=== PATIENT | female | born 1990 | race Caucasian/White ===

== ENCOUNTER 2022-01-14 20:40 | Emergency (ER) | payer OTHER, SELFPAY ==
[2022-01-14 20:44] VITALS: BP 150/81; PULSE 88; RESP 18; TEMP 36.9; O2SAT 97; BMI 42.9
--- NOTE | 2022-01-14 20:50 | ECG_ITS ---
Test Reason : CHEST PAIN Blood Pressure : / mmHG Vent. Rate : 090 BPM Atrial Rate : 090 BPM P-R Int : 144 ms QRS Dur : 086 ms QT Int : 334 ms P-R-T Axes : 067 022 030 degrees QTc Int : 408 ms Normal sinus rhythm Normal ECG No previous ECGs available Referred By: Generic ED Physician Electronically Signed By:LEX THOMAS MD
[2022-01-14 20:58] VITALS: BP 148/86; PULSE 85; PULSE 92; RESP 12; O2SAT 96
--- NOTE | 2022-01-14 21:03 | ED.CHESTPAIN ---
HPI - Chest Pain General Chief Complaint: Chest Pain Stated Complaint: right side facial pressure,,feels like heart racin Time Seen by Provider: 01/14/22 20:59 Source: patient Mode of arrival: ambulatory Limitations: no limitations History of Present Illness HPI narrative: 31-year-old female who presents emergency department for evaluation of chest pain and anxiety. The patient states that over the past 3 days she has been having intermittent chest pain. She states that the chest pain is triggered by her feeling anxious. She describes the pain is a squeezing sensation and she points to her left chest. She states the pain will last approximately 15 minutes and then resolved. The pain is not related to her activity level. She states that she will get sweats with the chest pain but denies lightheadedness, dizziness, neck, jaw, arm or back pain associated with her chest pain. She states that the pain is 6/10 at its worst. The patient states that she is currently pain-free at the time of my evaluation. Patient identifies the following stressors: The patient states that her job is very stressful, she works for [employer]. She states that she is trying to movement by house, she has not been able to sleep at night, she states that her neighbors have been rude to her. Onset (ago): day(s) (3) Timing of current episode: episodic (Three episodes per day, less than 15 minute) Onset: other (Three days prior triggered by anxiety and stress) Pain location: left chest Pain radiation: none Severity: moderate Quality: other (Squeezing) Relieving factors: nothing Exacerbating factors: stress and other (Anxiety) Associated symptoms: diaphoresis Treatment prior to arrival: none Risk Factors Coronary artery disease risk factors: smoking history Related Data Allergies Allergy/AdvReac Type Severity Reaction Status Date / Time loratadine [From Claritin-D] Allergy Hives Verified 01/14/22 20:44 pseudoephedrine Allergy Hives Verified 01/14/22 20:44 [From Claritin-D] Review of Systems Review of Systems: Yes all other systems are reviewed and are negative [facility] Past Medical History [facility] Narrative: Past medical history: None. Past surgical history: None. Social history: The patient states she has smoked 4 cigarettes per day for approximately 6 years, she stop smoking 3 days prior. She denies alcohol use. She states that she was smoking marijuana frequently stop smoking marijuana 3 days prior. Social History Social History Alcohol intake: current Alcohol intake frequency: holidays/special occasions only Smoked in Last 30 Days: Yes Use of substances other than those prescribed or required for medical reasons: Yes Substance Use Type: Marijuana Advance Directives: No Advance Directives Information Provided: No Patient : No Physical Exam Vital Signs: Vital Signs: Last Vital Signs Temp 98.5 F 01/14/22 20:44 Pulse 92 01/14/22 20:58 Resp 12 01/14/22 20:58 BP 148/86 H 01/14/22 20:58 Pulse Ox 96 01/14/22 20:58 O2 Del Method 01/14/22 20:58 BMI result Body Mass Index 42.9 Const: General: cooperative and no acute distress Orientation/consciousness: oriented to person and oriented to place Limitations: no limitations HEENT: Head: Yes normal to inspection, Yes normocephalic and Yes atraumatic Ears: external ears normal General nose exam: Normal external nose present Face and sinus: Yes normal facial exam Mouth: Normal oral and palatal mucosa present Throat: Yes posterior oropharynx normal Eyes: General: appearance normal, both eyes and all related structures Pupils: Equal, round and reactive pupils present Neck: Neck: Yes normal visual inspection, Yes no lymphadenopathy, Yes trachea midline and Yes supple Chest: Chest palpation & inspection: normal inspection of the chest and normal palpation of entire chest wall Resp: Effort & Inspection: normal respiratory effort and able to speak in complete sentences Auscultation: clear to auscultation bilaterally Cardio: Rate: regular rate Rhythm: regular rhythm Heart sounds: S1 normal heart sound present, S2 normal heart sound present and no murmurs GI: Inspection: Yes normal to inspection Palpation (GI): Soft to palpation, nontender and no guarding Auscultation: normal bowel sounds : General: Yes no CVA tenderness Back/Spine/Pelvis: Back: no CVA tenderness Skin: General skin exam: no rashes or lesions noted Neuro: General: oriented to person and oriented to place Cranial nerves: Yes CN's II-XII intact bilaterally and Yes Equal, round and reactive pupils present Cognition (Neuro): normal cognition Motor exam (neuro): 5/5 motor strength present throughout Extrem: General: Yes normal to inspection Psych: Appearance: grossly normal Speech and movement: Normal speech and movement present Affect: normal affect Attitude: cooperative Thought process: Normal thought process present Thought content: Normal thought content present Course Course Course Narrative: 31-year-old female with no significant past medical history presents emergency department for evaluation of 3 days of intermittent left-sided chest pain, triggered by feeling anxious. Patient states that she has been having approximately 3 episodes per day the last approximately 15 minutes the nurses to diaphoresis. Patient was pain-free at the time my evaluation. Her physical examination was unremarkable. I ordered a laboratory evaluation, chest x-ray EKG. 2116: EKG was unremarkable with no evidence for STEMI. 2239: Laboratory evaluation: WBC elevated 14,900. High sensitive troponin I below detectable limits. COVID-19, influenza and RSV negative. At this time I believe the patient's chest pain is symptoms are consistent with anxiety/panic attacks. Patient was given Ativan 0.5 mg orally. She was prescribed Ativan 0.5 mg 3 times a day as needed for anxiety. She was advised to follow-up with her PCP and with [facility] to get counseling and possible medications for anxiety. She was given printed and verbal instructions and discharged home. Medical Decision Making Medical Decision Making Differential Diagnoses: Differential diagnosis (Coronary disease, STEMI, NSTEMI, takotsubo syndrome, anxiety, chest wall pain) Consideration of admission/observation: Consideration of Admission/Observation (Yes) Independent interpretation of EKG, rhythm strip, radiology study: Independent interp EKG,rhythm strip, radiology study I performed an independent interpretation of the: EKG My interpretation is : 21:09: Normal sinus rhythm with a rate of 90, normal CA interval, QRS duration QTC interval, no ST segment elevation, no ST segment depression, no T-wave abnormalities, no PVCs, no PACs, this is a normal EKG. Discharge Plan Discharge Clinical Impression: Chest pain, Anxiety Patient Disposition: Home, Self-Care Instructions: Anxiety (ED) Additional Instructions: Your EKG was normal. Your blood work was normal. Your troponin (marker of heart damage) was below detectable limits which is reassuring. At this time, I believe that your chest pain is caused by stress and anxiety. Take Ativan (lorazepam) 0.5 mg pills, pill 3 times a day as needed for anxiety/panic attack. This medication will make you sleepy so after you take this medicine you should lie down and rest. This medication is called a benzodiazepine. Benzodiazepines can be addicting. If your concerned about addiction you can ask the pharmacist for less pills than prescribed or do not get this prescription filled. Follow-up with your doctor to discuss further treatment for anxiety, also you can follow-up with [facility] ([facility]) . Follow-up with your doctor in 2 days. Please return to the emergency department if your symptoms get worse or if you develop any symptoms that are concerning to you.
[2022-01-14 21:15] LABS: MANUAL DIFF FLAG NO
[2022-01-14 21:28] LABS: Basophils Absolute Auto 0.1 X10*3/uL (0.0-0.2); Basophils Percent Auto 0.7 % (0-2); Eosinophils Absolute Auto 0.1 X10*3/uL (0.0-0.4); Eosinophils Percent Auto 0.9 % (0-4); Hematocrit 40.4 % (37.0-47.0); Hemoglobin 14.1 g/dl (12.0-16.0); Imm Gran Abs Auto 0.07 X10*3/uL (0.00-0.03); Imm Gran Pct Auto 0.5 % (0.0-0.4); Lymphocytes Absolute Auto 4.4 X10*3/uL (1.2-4.9); Lymphocytes Percent Auto 29.7 % (20-40); Mean Corpuscular HGB Conc 34.9 g/dl (31.0-35.0); Mean Corpuscular Hemoglobin 29.9 pg (27.0-33.0); Mean Corpuscular Volume 85.6 fL (80.0-98.0); Mean Platelet Volume 9.9 fL (9.4-12.3); Monocytes Absolute Auto 0.9 X10*3/uL (0.1-1.2); Monocytes Percent Auto 5.7 % (2-11); Neutrophils Absolute Auto 9.4 x10*3/uL (2.0-8.3); Neutrophils Percent Auto 62.5 % (45-73); Platelet Count 404 X10*3/uL (160-400); Red Blood Count 4.72 X10*6/uL (4.20-5.50); Red Cell Distribution Width 12.6 % (11.0-16.0); White Blood Count 14.9 X10*3/uL (4.8-10.8)
[2022-01-14 21:42] LABS: Troponin-I High Sensitivity < 3.5 ng/L (<3.5-17.0)
[2022-01-14 21:53] LABS: Alanine Aminotransferase 39 U/L (0-31); Albumin Level 4.5 g/dL (3.5-5.0); Alkaline Phosphatase 71 U/L (39-117); Anion Gap 15 (12-20); Aspartate Amino Transferase 25 U/L (5-31); Blood Urea Nitrogen 10 mg/dL (9-16); Calcium 9.6 mg/dL (8.4-10.2); Carbon Dioxide 23 mmol/L (22-29); Chloride 106 mmol/L (96-108); Creatinine Clr Calc Pharmacy 136.5; Estimated Glomerular Filt Rate > 60; Glucose Random 109 mg/dL (60-115); Potassium 4.1 mmol/L (3.3-5.1); Sodium 140 mmol/L (135-145); Total Protein 7.9 g/dL (6.5-8.0)
[2022-01-14 21:59] LABS: Influenza A PCR NEGATIVE (Negative); Influenza B PCR NEGATIVE (Negative); Resp Syncy Virus RNA Qual PCR NEGATIVE (Negative); SARS COV2 PCR INHOUSE NEGATIVE (Negative)
[2022-01-14] MEDS: LORazepam 0.5 MG TABLET PO (22:54)
[2022-01-14 23:18] LABS: Bilirubin Total 0.6 mg/dL (0.0-1.0)
== END 2022-01-14 23:02 | disposition home or self-care (01) ==
PROVIDERS: Emergency Provider Emergency Medicine Emergency Medical Services
DX: R07.9 Chest pain, unspecified (principal); F41.9 Anxiety disorder, unspecified; Z20.822 Contact with and (suspected) exposure to COVID-19
CPT/HCPCS: 0241U; 36415; 80053; 83735; 84484; 85025; 93005; 99283; 99285

== ENCOUNTER 2024-10-10 10:20 | Outpatient (REF) | payer MEDICAID, SELFPAY ==
--- OUTSIDE RECORDS SUMMARY | 2024-10-10 09:30 | XMS_ITS | Encounter Summary ---
Demographics Address [address] [place] [address] Mobile Phone Home Phone Email Address Preferred Language en Marital Status Single Religion Affiliation Unknown Race Other Race Ethnic Group Unknown Author Organization [employer] Address [address] [place] [address] Care Team Providers Care [employer] Name Role Phone Rubina Rivas DO Primary Care Provider [phone] Encounter Details Date Type Department Care Team (Late st Contact Info) Description 10/10/2024 9:30 AM EDT Office Visit [facility] [address] [place], [place] [phone] Rubina Rivas DO [address] [place], [place] [phone] Routine history and physical examination of adult (Primary Dx); Anxiety; BMI 45.0-49.9, adult (CMS/HCC); Dietary counseling; Exercise counseling; Fatty liver; Chest pain, unspecified type; Dizziness Social History Tobacco Use Types Packs/Day Years Used Date Smoking Tobacco: Former Cigarettes Smokeless Tobacco: Former Tobacco Cessation:Counseling Given: No Alcohol Use Standard Drinks/Week Comments Never 0 (1 standard drink = 0.6 oz pur e alcohol) Alcohol Answer Date Recorded How often do you have a drink containing alcohol ? 1 10/10/2024 How many drinks containing a lcohol do you have on a typical day when you are drinking? 0 10/10/2024 How often do you have six or more drinks on one occasion? 1 10/10/2024 Depression Answer Date Recorded Patient Health Questionnaire-9 Score 10 10/10/2024 Patient Health Questionnaire-9 Score 10 10/10/2024 Last PHQ-9: Questionnaire Data Not on file 0 10/10/2024 Housing Stability Answer Date Recorded What is your housing situation today? I have rhys [place] 10/01/[address] you li ve. Do you have problems with any of the following? None of the above 10/01/2024 Food Insecurity Answer Date Recorded Within the past 12 months, y ou worried that your food would run out before you got money to buy more: Never True 10/01/2024 Within the past 12 months,th e food you bought just didn't last and you didn't have enough money to get more: Never True Transportation Answer Date Recorded In the past 12 months, has l ack of transportation kept you from medical appts, meetings, work or from getting things needed for daily living? No 10/01/2024 Utilities Answer Date Recorded In the past 12 months, has t he electric, gas, oil or water company threatened to shut off services in your home? Yes 10/01/2024 Depression Answer Date Recorded Patient Health Questionnaire-2 Score 2 10/10/2024 Internet Access Answer Date Recorded Internet Access Q1 Yes 10/01/2024 Internet Access Q2 Not on file 10/01/2024 Comments No Sex and Gender Information Value Date Recorded Sex Assigned at Female 03/07/2022 12:55 PM EST Legal Sex Female 12:55 PM EST Gender Identity Female 03/07/2022 12:55 PM EST Sexual Orientation Don't know 03/07/2022 12 :55 PM EST documented as of this encounter Last Filed Vital Signs Vital Sign Reading Time Taken Comments Blood Pressure 118/78 10/10/2024 9:30 AM EDT Pulse 92 10/10/2024 9:30 AM EDT Temperature 36.1 C (96.9 F) 10/10/2024 9:30 AM EDT Respiratory Rate 20 10/10/2024 9:30 AM EDT Oxygen Saturation 99% 10/10/2024 9:30 AM EDT Inhaled Oxygen Concentration - - Weight 119 kg (263 lb 4 oz) 10/10/2024 9:30 AM E DT Height 162.6 cm (5' 4 ) 10/10/2024 9:30 AM EDT Body Mass Index 45.19 10/10/2024 9:30 AM EDT documented in this encounter Functional Status * Over the past 2 weeks, how often have you been bothered by any of the following problems? Question Answer Date of Assessment Author Patient Health Questionnaire -2 Score 2 10/10/2024 10:25 AM EDT Karen Levy MA * Little interest or pleasure in doing things Answer Date of Assessment Author Several days 10/10/2024 10:25 AM Karen Duncan MA * Feeling down, depressed, or hopeless Answer Date of Assessment Author Several days 10/10/2024 10:25 AM Karen Duncan MA * Trouble falling or staying asleep, or sleeping too much Answer Date of Assessment Author Nearly every day 10/10/2024 10:25 AM Karen Duncan MA * Feeling tired or having little energy Answer Date of Assessment Author Several days 10/10/2024 10:25 AM Karen Duncan MA * Poor appetite or overeating Answer Date of Assessment Author More than half the days 10/10/2024 10:25 AM Karen Duncan MA * Feeling bad about yourself - or that you are a failure or have let yourself or your family down Answer Date of Assessment Author Several days 10/10/2024 10:25 AM Karen Duncan MA * Trouble concentrating on things, such as reading the newspaper or watching television Answer Date of Assessment Author Not at all 10/10/2024 10:25 AM Karen Duncan MA * Moving or speaking so slowly that other people could have noticed? Or the opposite - being so fidgety or restless that you have been moving around a lot more than usual. Answer Date of Assessment Author Several days 10/10/2024 10:25 AM Karen Duncan MA * Thoughts that you would be better off or hurting yourself in some way Answer Date of Assessment Author Not at all 10/10/2024 10:25 AM Karen Duncan MA * Patient Health Questionnaire-9 Score Answer Date of Assessment Author 10 10/10/2024 10:25 AM Karen Duncan MA * How difficult have these problems made it for you to do your work, take care of things at home, or get along with other people? Answer Date of Assessment Author Somewhat difficult 10/10/2024 10:25 AM EDT Mojic a, Karen, [place] * Over the last 2 weeks, how often have you been bothered by any of the following problems? Question Answer Date of Assessment Author Feeling nervous, anxious, or on edge 1 10/10/2024 10:25 AM EDT Karen Levy MA Not being able to stop or co ntrol worrying 1 10/10/2024 10:25 AM EDT Karen Levy MA Worrying too much about diff erent things 1 10/10/2024 10:25 AM EDT Karen Levy MA Trouble relaxing 1 10/10/2024 10:25 AM EDT Karen Levy MA Being so restless that it is hard to sit still 1 10/10/2024 10:25 AM EDT Karen Levy MA Becoming easily annoyed or irritable 0 10/10/2024 10:25 AM KAYLEENT Karen Levy MA documented as of this encounter Plan of Treatment Scheduled Orders Name Type Priority Associated Diagnoses Orde r Schedule T4, Free Lab Routine Routine history and physical examination of adult Anxiety BMI 45.0-49.9, adult ([facility]) Dietary counseling Exercise counseling Fatty liver Chest pain, unspecified type Dizziness Expected: 10/10/2024 (Approximate), Expires: 10/10/2025 Lipid Panel, Standard Lab Routine Routine history and physical examination of adult Anxiety BMI 45.0-49.9, adult ([facility]) Dietary counseling Exercise counseling Fatty liver Chest pain, unspecified type Dizziness Expected: 10/10/2024 (Approximate), Expires: 10/10/2025 TSH Lab Routine Routine history and physical examination of adult Anxiety BMI 45.0-49.9, adult ([facility]) Dietary counseling Exercise counseling Fatty liver Chest pain, unspecified type Dizziness Expected: 10/10/2024 (Approximate), Expires: 10/10/2025 Vitamin D, 25-Hydroxy, Total, Immunoassay Lab Routine Routine history and physical examination of adult Anxiety BMI 45.0-49.9, adult ([facility]) Dietary counseling Exercise counseling Fatty liver Chest pain, unspecified type Dizziness Expected: 10/10/2024 (Approximate), Expires: 10/10/2025 Hepatic Function Panel Lab Routine Routine history and physical examination of adult Anxiety BMI 45.0-49.9, adult ([facility]) Dietary counseling Exercise counseling Fatty liver Chest pain, unspecified type Dizziness Expected: 10/10/2024 (Approximate), Expires: 10/10/2025 Hemoglobin A1c Lab Routine Routine history and physical examination of adult Anxiety BMI 45.0-49.9, adult ([facility]) Dietary counseling Exercise counseling Fatty liver Chest pain, unspecified type Dizziness Expected: 10/10/2024 (Approximate), Expires: 10/10/2025 Basic Metabolic Panel Lab Routine Routine history and physical examination of adult Anxiety BMI 45.0-49.9, adult ([facility]) Dietary counseling Exercise counseling Fatty liver Chest pain, unspecified type Dizziness Expected: 10/10/2024 (Approximate), Expires: 10/10/2025 Hepatitis B surface antigen, EIA Lab Routine Routine history and physical examination of adult Anxiety BMI 45.0-49.9, adult ([facility]) Dietary counseling Exercise counseling Fatty liver Chest pain, unspecified type Dizziness Expected: 10/10/2024 (Approximate), Expires: 10/10/2025 Chlamydia/N. Gonorrhoeae RNA, TMA, Urogenitial Microbiology Routine Routine history and physical examination of adult Anxiety BMI 45.0-49.9, adult ([facility]) Dietary counseling Exercise counseling Fatty liver Chest pain, unspecified type Dizziness Ordered: 10/10/2024 HIV-1/2 Antigen and Antibodies, Fourth Generation, with Reflexes Lab Routine Routine history and physical examination of adult Anxiety BMI 45.0-49.9, adult ([facility]) Dietary counseling Exercise counseling Fatty liver Chest pain, unspecified type Dizziness Expected: 10/10/2024 (Approximate), Expires: 10/10/2025 Hepatitis C Antibody with Reflex to HCV, RNA, Quantitative, Real-Time PCR Lab Routine Routine history and physical examination of adult Anxiety BMI 45.0-49.9, adult ([facility]) Dietary counseling Exercise counseling Fatty liver Chest pain, unspecified type Dizziness Expected: 10/10/2024, Expires: 10/10/2025 RPR (Monitor) with Reflex to Titer Lab Routine Routine history and physical examination of adult Anxiety BMI 45.0-49.9, adult ([facility]) Dietary counseling Exercise counseling Fatty liver Chest pain, unspecified type Dizziness Expected: 10/10/2024, Expires: 10/10/2025 Hepatitis B Surface Antibody, Qualitative Lab Routine Routine history and physical examination of adult Anxiety BMI 45.0-49.9, adult ([facility]) Dietary counseling Exercise counseling Fatty liver Chest pain, unspecified type Dizziness Expected: 10/10/2024 (Approximate), Expires: 10/10/2025 Hepatitis A Antibody, Total Lab Routine Routine history and physical examination of adult Anxiety BMI 45.0-49.9, adult ([facility]) Dietary counseling Exercise counseling Fatty liver Chest pain, unspecified type Dizziness Expected: 10/10/2024 (Approximate), Expires: 10/10/2025 Hepatitis B Core Antibody, Total Lab Routine Routine history and physical examination of adult Anxiety BMI 45.0-49.9, adult ([facility]) Dietary counseling Exercise counseling Fatty liver Chest pain, unspecified type Dizziness Expected: 10/10/2024 (Approximate), Expires: 10/10/2025 Varicella zoster antibody, IgG Lab Routine Routine history and physical examination of adult Anxiety BMI 45.0-49.9, adult ([facility]) Dietary counseling Exercise counseling Fatty liver Chest pain, unspecified type Dizziness Expected: 10/10/2024 (Approximate), Expires: 10/10/2025 Measles, Mumps, and Rubella (MMR) Antibodies (IgG) Panel, Immune Status Lab Routine Routine history and physical examination of adult Anxiety BMI 45.0-49.9, adult ([facility]) Dietary counseling Exercise counseling Fatty liver Chest pain, unspecified type Dizziness Expected: 10/10/2024 (Approximate), Expires: 10/10/2025 T-SPOT .TB Lab Routine Routine history and physical examination of adult Anxiety BMI 45.0-49.9, adult ([facility]) Dietary counseling Exercise counseling Fatty liver Chest pain, unspecified type Dizziness Expected: 10/10/2024 (Approximate), Expires: 10/10/2025 Alpha-Fetoprotein, Tumor Marker Lab Routine Routine history and physical examination of adult Anxiety BMI 45.0-49.9, adult ([facility]) Dietary counseling Exercise counseling Fatty liver Chest pain, unspecified type Dizziness Expected: 10/10/2024 (Approximate), Expires: 10/10/2025 CBC auto differential Lab Routine Routine history and physical examination of adult Anxiety BMI 45.0-49.9, adult ([facility]) Dietary counseling Exercise counseling Fatty liver Chest pain, unspecified type Dizziness Expected: 10/10/2024 (Approximate), Expires: 10/10/2025 documented as of this encounter Visit Diagnoses Diagnosis Routine history and physical examination of adult- Primary Anxiety Anxiety state, unspecified BMI 45.0-49.9, adult (CMS/HCC) Dietary counseling Dietary surveillance and counseling Exercise counseling Fatty liver Other chronic nonalcoholic liver disease Chest pain, unspecified type Dizziness Dizziness and giddiness documented in this encounter Additional Health Concerns Assessment Noted Time PHQ-9 Depression Total Score: 10 025 10:25 AM EDT documented as of this encounter Care Teams [employer] Relationship Specialty Start Date End Date Rubina Rivas DO [address] [place] [id number] PCP - General Family Medicine 10/10/24 documented as of this encounter
[2024-10-10 11:19] LABS: MANUAL DIFF FLAG NO
--- OUTSIDE RECORDS SUMMARY | 2024-10-10 11:24 | XMS_ITS | Clinical Summary ---
Author Organization [facility] Address [address] [place] [address] Care Team Providers Care Opera Singer Name Role Phone Travon Reyes MD Primary Care Provider [phone] Source Comments PLEASE NOTE, if this patient is a minor, it may be UNLAWFUL to discuss sensitive information that is contained in these records (such as FAMILY PLANNING, MENTAL HEALTH or SUBSTANCE ABUSE) with the minor patient's parent or other person without the patient's specific authorization.[facility] Allergies No known active allergies Medications cetirizine (ZYRTEC) 10 mg tabletIndicatio ns:Urticaria Take 1 Tablet by mouth nightly at bedtime 30 Tablet 1 4 Active diclofenac sodium (VOLTAREN) 1 % gelIndications: Acute pain of left shoulder Apply topically 2 (two) times daily 100 g 3 5 Active ketoconazole (NIZORAL) 2 % creamIndication s:Tinea pedis of right foot Apply topically 2 (two) times daily. 60 g 5 Active fluticasone (FLONASE) 50 mcg/actuation nasal sprayIndication s:Nasal sinus congestion Place 2 Sprays in both nostrils once daily for 14 days. 16 g 2 5 Active Active Problems Problem Noted Date Diagnosed Date IUD (intrauterine device) in place 03/14/2024 Overview (03/14/2024): Paraguard placed 02/2020 at [facility] Food insecurity 03/14/2024 Financial difficulties 03/14/2024 Housing problems 03/14/2024 Mixed hyperlipidemia 06/01/2023 Class 3 severe obesity due t o excess calories with serious comorbidity and body mass index (BMI) of 45.0 to 49.9 in adult (CMS & HHS-HCC) 08/06/2022 Carpal tunnel syndrome, bilateral 09/20/2020 Resolved Problems Problem Noted Date Diagnosed Date Resolved Date Ex-smoker for less than 1 year 09/20/2020 05/02/2022 Encounter for insertion of ParaGard IUD 08/23/2020 05/02/2022 Overview (08/23/2020): Feb 2020 at [place] Encounters Date Type Department Care Team Description 08/05/2024 1:20 PM EDT Office Visit [address] [phone] Travon Reyes MD 07/17/2024 3:40 PM EDT Office Visit [address] [id number] Cookie, NAYELI Black from Last 3 Months Immunizations Immunization Administration Dates Next Due Flu, Preservative Free 12/10/2020 Family History Medical History Relation Name Comments Breast cancer Maternal Aunt Congestive heart failure Maternal Grandmother Diabetes Maternal Grandmother HIV/AIDS Mother Relation Name Status Comments Maternal Aunt Alive Maternal Grandmother Mother Social History Tobacco Use Types Packs/Day Years Used Date Smoking Tobacco: Former Cigarettes Q uit: 07/24/2020 Smokeless Tobacco: Never Tobacco Cessation:Counseling Given: Not Answered Alcohol Use Standard Drinks/Week Comments Never 0 (1 standard drink = 0.6 oz pur e alcohol) Social Connections Answer Date Recorded How often do you feel lonely or isolated from th ose around you? 1 03/14/2024 Financial Resource Strain Answer Date R ecorded Hard to pay for: Utilities 2 03/14 Stress Answer Date Recorded Do you feel these kinds of stress these days? 1 03/14/2024 Physical Activity Answer Date Recorded Physical Activity 0 08/23/2020 Food Insecurity Answer Date Recorded Within the past 12 months, t he food you bought just didn't last and you didn't have enough money to get more. 2 03/14/19 Transportation Needs Answer Date Record ed Hard to pay for: Transportation 1 03/14/2024 Housing Stability Answer Date Recorded Hard to pay for: Rent/Mortgage payment 2 03/14/2024 Safety and Environment Answer Date Jed rded How often does anyone, inclu ding family and friends, physically hurt you? 1 03/14/2024 Utilities Answer Date Recorded Hard to pay for: Utilities 2 03/14 Employment Answer Date Recorded Stress 0 04/25/2021 Comments No Sex and Gender Information Value Date Recorded Sex Assigned at Female 09/20/2020 6:15 AM PDT Legal Sex Female 12:21 PM PDT Gender Identity Female 09/20/2020 6:15 AM PDT Sexual Orientation Straight 09/20/2020 6: 15 AM PDT Last Filed Vital Signs Vital Sign Reading Time Taken Comments Blood Pressure 110/62 08/05/2024 1:25 PM EDT Pulse 73 08/05/2024 1:25 PM EDT Temperature 36.2 C (97.1 F) 08/05/2024 1:25 PM EDT Respiratory Rate 16 08/05/2024 1:25 PM EDT Oxygen Saturation 97% 08/05/2024 1:25 PM EDT Inhaled Oxygen Concentration - - Weight 117.8 kg (259 lb 9.6 oz) 08/05/2024 1:25 PM EDT Height 163.7 cm (5' 4.45 ) 03/14/2024 1:12 PM ES T Body Mass Index 43.94 03/14/2024 1:12 PM EST Plan of Treatment Health Maintenance Due Date Last Done Comments HPV Screening 1989 Breast Cancer Screening (Mammogram) 02/07/2023 02/07/2022 Depression Monitoring 06/11/2024 03/14/2024 , 05/02/2022, 08/23/2020 [id number] ( season) 10/06/202412/31/2 021, 12/10/2020 Annual Wellness (Adult): Indicated (All Coverage) 03/14/2025 03/14/2024, 08/03/2022 Anxiety Screening 03/14/2025 03/14/2024 Relationship Safety Screening/Counseling 03/14/2025 03/14/2024, 05/02/2022, 08/23/2020 Pap Smear 04/06/2025 04/06/2022 Hypertension Screening (#1) 08/05/2025 Tobacco Screening 08/05/2025 08/05/2024, , 08/23/2020 Diabetes Screening 03/14/2027 03/14/2024, 0 03/14/2024, 06/01/2023, Additional history exists Lipid Screening 03/14/2027 03/14/2024, 0407/2023, 05/05/2022, Additional history exists Cervical Cancer Screening 04/07/2027 Pap + HPV 04/07/2027 04/06/2022 Imm-Influenza Discontinued 12/10/2020 HIV Screening Completed 04/06/2022 Hepatitis C Screening Completed 04/06/2022 Alcohol and Drug Screen Completed 03/14/19, 08/03/2022, 05/02/2022, Additional history exists Cervical Ablation/Cold-Knife Conization Discontinued Cervical Cryotherapy Discontinued Colposcopy Discontinued Endometrial Biopsy Discontinued Excision/Leep Discontinued HPV Genotyping Discontinued Imm-DTaP/Tdap/Td Discontinued Imm-Hepatitis B Discontinued Vaginal Pap Discontinued Vulvoscopy Discontinued Procedures Procedure Name Priority Date/Time Associated Diagnosis Comments COMPREHENSIVE METABOLIC PANEL Routine 03/14/2024 1:48 PM EST Routine general medical examination at a health care facility LIPID PANEL Routine 03/14/2024 1:48 PM EST Routine general medical examination at a health care facility HIV 1/2 AG & AB W/RFLX (4TH GEN) Routine 04/06/2022 11:30 AM EST Screening for STDs (sexually transmitted diseases) HEPATITIS C AB W/RFLX HCV RNA, QT, RT PCR Routine 04/06/2022 11:30 AM EST Screening for STDs (sexually transmitted diseases) THINPREP PAP & HPV MRNA E6/E7 RFLX HPV 16,18/[address]/NG Routine 04/06/2022 11:12 AM EST Encounter for Papanicolaou smear of vagina as part of routine gynecological examination Encounter for screening for human papillomavirus (HPV) HISTORIC MAMMOGRAM 02/07/2022 3: 00 AM EST from Last 3 Months or Most Recently Relevant to Health Maintenance Results * (ABNORMAL) LIPID PANEL (03/14/2024 1:48 PM EST) Pathologist [facility] CHOLESTEROL, TOTAL 199 <200 mg/dL [facility] HDL CHOLESTEROL 45(L) > OR = 50 mg/dL [facility] TRIGLYCERIDES 154(H) <150 mg/dL [facility] LDL-CHOLESTEROL 127(H) 99 mg/dL (calc) [facility] Comment: Reference range: <100 Desirable range <100 mg/dL for primary prevention; <70 mg/dL for patients with CHD or diabetic patients with > or = 2 CHD risk factors. LDL-C is now calculated using the Melody calculation, which is a validated novel method providing better accuracy than the Friedewald equation in the estimation of LDL-C. Augustine SS et al. ADALGISA. 2013;310(76): 9334-7966 (http://education.Transave/faq/NWT662) CHOL/HDLC RATIO 4.4 <5.0 (calc) [facility] NON-HDL CHOLESTEROL 154(H) <130 mg/dL (calc) [facility] Comment: For patients with diabetes plus 1 major ASCVD risk factor, treating to a non-HDL-C goal of <100 mg/dL (LDL-C of <70 mg/dL) is considered a therapeutic option. Blood Blood / Unknown 03/14/2024 1 :48 PM EST 03/14/2024 1:49 PM EST Narrative [facility] - 03/15/2024 8:03 AM EST FASTING:YES Travon Reyes MD LAB - BLOOD DRAW Final Result [facility] [address] [address], [facility] [address] [address] * (ABNORMAL) COMPREHENSIVE METABOLIC PANEL (03/14/2024 1:48 PM EST) [facility] GLUCOSE 95 65 - 99 mg/dL [facility] Comment: Fasting reference interval [facility] NITROGEN (BUN) 15 7 - 25 mg/dL [facility] CREATININE (blood) 0.84 0.50 - 0.97 mg/dL [facility] EGFR 93 > OR = 60 mL/min/1. 73m2 [facility] BUN/CREATININE RATIO SEE NOTE: 6 [facility] Comment: Not Reported: BUN and Creatinine are within reference range. SODIUM 140 135 - 146 mmol/L [facility] POTASSIUM 5.2 3.5 - 5.3 mmol/L [facility] CHLORIDE 105 98 - 110 mmol/L [facility] CARBON DIOXIDE 25 20 - 32 mmol/L [facility] CALCIUM 10.1 8.6 - 10.2 mg/dL [facility] PROTEIN, TOTAL 7.7 6.1 - 8.1 g/dL [facility] ALBUMIN 4.7 3.6 - 5.1 g/dL [facility] GLOBULIN 3.0 1.9 - 3.7 g/dL (calc) [facility] ALBUMIN/GLOBULI N RATIO 1.6 1.0 - 2.5 (calc) [facility] BILIRUBIN, TOTAL 0.5 0.2 - 1.2 mg/dL [facility] ALKALINE PHOSPHATASE 69 31 - 125 U/L [facility] AST 21 10 - 30 U/L [facility] ALT 41(H) 6 - 29 U/L [facility] Blood Blood / Unknown 03/14/2024 1 :48 PM EST 03/14/2024 1:49 PM EST Narrative [facility] - 03/15/2024 8:03 AM EST FASTING:YES Travon Reyes MD LAB - BLOOD DRAW Edited Result - Final [facility] [address] [address], [facility] [address] [place] [address] * HEPATITIS C AB W/RFLX HCV RNA, QT, RT PCR (04/06/2022 11:30 AM EST) HEPATITIS C ANTIBODY NON-REACT CHRISS NON-REACT CHRISS [facility] SIGNAL TO CUT-OFF 0.04 <1.00 [facility] Comment: HCV antibody was non-reactive. There is no laboratory evidence of HCV infection. In most cases, no further action is required. However, if recent HCV exposure is suspected, a test for HCV RNA (test code 15338) is suggested. For additional information please refer to http://University Beyond.Leonar3Do/faq/HCB00n7 (This link is being provided for informational/ educational purposes only.) Blood Blood / Unknown 04/06/2022 1 1:30 AM EST 04/06/2022 11:31 AM EST us Travon Reyes MD LAB - BLOOD DRAW Edited Result - Final Performing Organization Address [facility] Co de Phone Number [facility] [address] [address], [facility] [address] ([address] [address] * HIV 1/2 AG & AB W/RFLX (4TH GEN) (04/06/2022 11:30 AM EST) HIV AG/AB, 4TH GEN NON-REAC TIVE NON-REAC TIVE [facility] Comment: HIV-1 antigen and HIV-1/HIV-2 antibodies were not detected. There is no laboratory evidence of HIV infection. PLEASE NOTE: This information has been disclosed to you from records whose confidentiality may be protected by state law. If your state requires such protection, then the state law prohibits you from making any further disclosure of the information without the specific written consent of the person to whom it pertains, or as otherwise permitted by law. A general authorization for the release of medical or other information is NOT sufficient for this purpose. For additional information please refer to http://University Beyond.Leonar3Do/faq/UYU889 (This link is being provided for informational/ educational purposes only.) The performance of this assay has not been clinically validated in patients less than 2 years old. Blood Blood / Unknown 04/06/2022 1 1:30 AM EST 04/06/2022 11:31 AM EST us Travon Reyes MD LAB - BLOOD DRAW Final Result Performing Organization Address [facility] Co de Phone Number [facility] [address] [address], [place] [facility] [address] ([address]) [place] [address] * THINPREP PAP & HPV MRNA E6/E7 RFLX HPV 16,18/[address]/NG (04/06/2022 11:12 AM EST) CHLAMYDIA TRACHOMATIS RNA, TMA NOT DETECTED NOT DETECTED [facility] NEISSERIA GONORRHOEAE RNA, TMA NOT DETECTED NOT DETECTED [facility] COMMENT [facility] CLINICAL INFORMATION See Note [facility] Comment:Routine exam LMP See Note [facility] Comment:03/12/2022 PREV. PAP See Note [facility] Comment:NONE GIVEN PREV. BX See Note [facility] Comment:NONE GIVEN SOURCE See Note [facility] Comment:Cervix STATEMENT OF ADEQUACY See Note [facility] Comment: Satisfactory for evaluation. Endocervical/transformation zone component present. INTERPRETATION/RESU LT See Note [facility] Comment:Negative for intraep ithelial lesion or malignancy. 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 HPV MRNA E6/E7 Not Detected Not Detected [facility] Comment: Methodology: Bleacher Sulfite Pulp-Mediated Amplification This assay detects E6/E7 viral messenger RNA (mRNA) from 14 high-risk HPV types (16,18,31,33,35,39,45,51,52,56,58,59,66,68). Cervical sources are required for HPV testing. If a vaginal source from a patient who has had a total hysterectomy with removal of cervix was submitted, please contact the testing laboratory for alternative testing options. For additional information, please refer to http://education.Leonar3Do/faq/TLC052r1 (This link if provided for information/ educational purposes only.) CYTOLOGY Cervix uteri structure / Unknown 04/06/2022 11:12 AM EST 04/07/2022 11:37 AM EST Narrative [facility] - 04/11/2022 10:51 AM EST EXPLANATORY NOTE: The Pap is a screening test for cervical cancer. It is not a diagnostic test and is subject to false negative and false positive results. It is most reliable when a satisfactory sample, regularly obtained, is submitted with relevant clinical findings and history, and when the Pap result is evaluated along with historic and current clinical information. The analytical performance characteristics of this assay, when used to test SurePath(TM) specimens have been determined by [employer]. The modifications have not been cleared or approved by the FDA. This assay has been validated pursuant to the CLIA regulations and is used for clinical purposes. For additional information, please refer to https://education.Leonar3Do/faq/FWE428 (This link is being provided for information/ educational purposes only.) Travon Reyes MD LAB - PATHOLOGY AND CYTOLOGY AMB ULATORY Final Result [facility] [address] [address], [facility] [address] ([address]) [place] [address] * HISTORIC MAMMOGRAM (02/07/2022 3:00 AM EST) 02/07/2022 3:00 AM EST Amairani Griffiths FINISHED YARN EXAMINER-C IMG MAMMO Edited R esult - Final from Last 3 Months or Most Recently Relevant to Health Maintenance Insurance [place] MEDICAID DENT[place] [address] ACO Health Administration [facility] [place] Medicaid Address: [facility] [id number] [place] [address] Care Teams Opera Singer Relationship Specialty Start Date End Date Travon Reyes MD [address] [place] [address] PCP - General Family Medicine, Physician 02/02/23
--- OUTSIDE RECORDS SUMMARY | 2024-10-10 11:24 | XMS_ITS | Encounter Summary ---
Demographics Address [address] [place] [address] Mobile Phone Home Phone Email Address m Preferred Language en Marital Status Single Yazidism Affiliation Unknown Race Other Race Ethnic Group Unknown Author Organization [employer] Address [address] [place] [address] Care Team Providers Care Thaw Shed Heater Tender Name Role Phone ChingRubina brown Primary Care Provider Encounter Details Date Type Department Care Team (Latest Contact Info) Description 10/10/2024 Travel Social History Tobacco Use Types Packs/Day Years Used Date Smoking Tobacco: Former Cigarettes Smokeless Tobacco: Former Alcohol Use Standard Drinks/Week Comments Never 0 [...] PM EST documented as of this encounter Functional Status * Over the past 2 weeks, how often have you been bothered by any of the following problems? Question Answer Date of Assessment Author Patient Health Questionnaire -2 Score 2 10/10/2024 10:25 AM Karen Duncan MA * Little interest or pleasure in [...] Assessment Author Several days 10/10/2024 10:25 AM EDT Karen Levy MA * Thoughts that you would be better off or hurting yourself in some way Answer Date of Assessment Author Not at all 10/10/2024 10:25 AM EDT Karen Levy MA * Patient Health Questionnaire-9 Score Answer Date of Assessment Author 10 10/10/2024 10:25 AM EDT Karen Levy MA * How difficult have these problems made it for you to do your work, take care of things at home, or get along with other people? Answer Date of Assessment Author Somewhat difficult 10/10/2024 10:25 AM EDT Karen Johns MA * Over the last 2 weeks, [...] annoyed or irritable 0 10/10/2024 10:25 AM EDT Karen Levy MA documented as of this encounter Plan of Treatment Not on file documented as of this encounter Visit Diagnoses Not on filedocumented in this encounter Additional Health Concerns Assessment Noted Time PHQ-9 Depression Total Score: 10 10/10/2 025 10:25 AM EDT documented as of this encounter Care Teams Thaw Shed Heater Tender Relationship Specialty Start Date End Date Rubina Rivas DO [facility] [place] [address] PCP - General Family Medicine 10/10/24 documented as of this encounter
--- OUTSIDE RECORDS SUMMARY | 2024-10-10 11:24 | XMS_ITS | Encounter Summary ---
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 Name Role Phone Unavailable Primary Care Provider Unavailabl e Encounter Details Date Type Department Care Team (Latest Contact Info) Description 10/09/2024 Travel Social History Tobacco Use Types Packs/Day Years Used Date Smoking Tobacco: Never Assessed Alcohol Answer Date Recorded How often do [...] Access Q2 Not on file 10/01/2024 Comments Unknown Sex and Gender Information Value Date Recorded Sex Assigned at Female 03/07/2022 12:55 PM EST Legal Sex Female 12:55 PM EST Gender Identity Female 03/07/2022 12:55 PM EST Sexual Orientation Don't know 03/07/2022 12 :55 PM EST documented as of this encounter Plan of Treatment Not on file documented as of this encounter Visit Diagnoses Not on filedocumented in this encounter
--- OUTSIDE RECORDS SUMMARY | 2024-10-10 11:24 | XMS_ITS | Clinical Summary ---
Author Organization [employer] [facility] Address [address] [place] [address] Care Team Providers Care Guest Room Attendant Name Role Phone Rubina Rivas DO Primary Care Provider [phone] Allergies No known active allergies Active Problems Problem Noted Date Diagnosed Date Anxiety 10/10/2024 BMI 45.0-49.9, adult 10/10/2024 Encounters Date Type Department Care Team Description 10/10/2024 9:30 AM EDT Office Visit [facility] [address] [place] [id number] Rubina Rivas DO Routine history and physical examination of adult (Primary Dx); Anxiety; BMI 45.0-49.9, adult (CMS/[facility]); Dietary counseling; Exercise counseling; Fatty liver; Chest pain, unspecified type; Dizziness 10/10/2024 Travel 10/09/2024 Travel 10/01/2024 Patient Outreach [facility] [address] [place] [phone] Rubina Rivas DO Pre-visit Planning (SDOH screening negative and tobacco screening negative) 10/01/2024 Telephone [facility] [address] [place] [phone] Rubina Rivas DO Chart Prep 08/26/2024 Population Health Risk Score [facility] Department [address] [phone] Provider, Population Health Generic from Last 3 Months Immunizations Immunization Administration Dates Next Due Influenza injectable quadrivalent preservative f ree 12/10/2020 Family History Medical History Relation Name Comments Hypertension Father COPD Maternal Grandmother Diabetes Maternal Grandmother Hypertension Maternal Grandmother Depression Mother HIV Mother Hepatitis Mother Breast cancer Mother's Sister Ovarian cancer Mother's Sister Stroke Paternal Grandmother Relation Name Status Comments Father Maternal Grandmother Mother Mother's Sister Paternal Grandmother Social History Tobacco Use Types Packs/Day Years [...] your housing situation today? I have rhys hansa 10/01/[address] you li [...] Don't know 03/07/2022 12 :55 PM EST Last Filed Vital Signs Vital Sign Reading [...] Mass Index 45.19 10/10/2024 9:30 AM EDT Plan of Treatment Health Maintenance Due Date Last Done Comments Lipid Panel 1989 Family Planning (PISQ) 2004 HPV Vaccines (1 - 3-dose series) 2004 Hepatitis C Screening 05/07/2007 DTaP/Tdap/Td Vaccines (1 - Tdap) 2008 Hepatitis A Vaccines (1 of 2 - Risk 2-dose series) 2008 Hepatitis B Vaccines (1 of 3 - 19+ 3-dose series) 2008 Pap Smear 2010 Cervical Cancer Screening 05/07/2019 HPV/Cotest 05/07/2019 COVID-19 Vaccine (3 - 2024-2 6 season) 2024 12/31/2020, 12/10/2020 Influenza Vaccine (#1) 2024 12/10/2020 Depression Monitoring 04/09/2025 10/10/2024 , 10/10/2024 SDOH Screening 10/01/2025 10/01/2024 Alcohol/Substance Use Screening 10/10/2025 10/10/2024 Disability Screening 10/10/2025 10/10/2024 Tobacco Screening 10/10/2025 10/10/2024 Zoster Vaccines (1 of 2) 05/07/2039 RSV Patients and Patients Aged 60 years or older (1 - 1-dose 75+ series) 2064 HIV Screening Completed 04/06/2022, 04/06/2022 HIB Vaccines Aged Out No longer eligi ble based on patient's age to complete this topic IPV Vaccines Aged Out No longer eligi ble based on patient's age to complete this topic Meningococcal B Vaccine Aged Out No l onger eligible based on patient's age to complete this topic Meningococcal Vaccine Aged Out No haylie lionel eligible based on patient's age to complete this topic Pneumococcal Vaccine: Pediatrics (0 to 5 Years) and At-Risk Patients (6 to 49) Years Aged Out No longer eligible b ased on patient's age to complete this topic RSV under 20 months Aged Out No longe r eligible based on patient's age to complete this topic Rotavirus Vaccines Aged Out No longer eligible based on patient's age to complete this topic [facility] [employer] * Guarantor: Caterina Thomas Account Type Relation to Patient Date of Phone Billing Address Personal/Family Self [address] [place] [address] Care Teams Guest Room Attendant Relationship Specialty Start Date End Date Rubina Rivas DO [address] [place] [id number] PCP - General Family Medicine 10/10/24
--- OUTSIDE RECORDS SUMMARY | 2024-10-10 11:24 | XMS_ITS | Clinical Summary ---
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 Name Role Phone Laxmi Helms MD Primary Care Provider Unava ilable Surgical History Surgery Date Site/Laterality Comments OTHER SURGICAL HISTORY PROCEDURE: DENIES PREVIOUS SURGERY BREAST BIOPSY 2019 Left PROCEDURE: BX BREAST; PERC NEEDLE CORE W/IMAG GUID; COMMENT: Fibroadenoma, benign Medical History Medical History Date Comments Chlamydia contact, treated 03/23/2016 DX:Ch lamydia contact, treated; COMMENT: 03/2016, 08/2016 Breast cyst, left 10/2019 DX:Breast cyst , left; COMMENT: biopsy benign Family History Medical History Relation Name Comments No Known Problems Father Diabetes Maternal Grandmother Hypertension Maternal Grandmother No Known Problems Mother Breast cancer Mother's side Aunt aunt (2019, d rosalba well, required radiaton only) Relation Name Status Comments Father Alive Maternal Grandmother Mother Alive Mother's side Aunt Alive Social History Tobacco Use Types Packs/Day Years Used Date Smoking Tobacco: Some Days Smokeless Tobacco: Never Alcohol Use Standard Drinks/Week Comments Yes 0 (1 standard drink = 0.6 oz pur e alcohol) Comments Unknown Sex and Gender Information Value Date Recorded Sex Assigned at Not on file Legal Sex Female 8:29 AM EST Gender Identity Not on file Sexual Orientation Not on file Obstetrics History Plan of Treatment Health Maintenance Due Date Last Done Comments COVID-19 Vaccine (#1) 1994 DTaP,Tdap,and Td Vaccines (1 - Tdap) 2008 Hepatitis B Vaccines (1 of 3 - 19+ 3-dose series) 2008 Pneumococcal Vaccine: Pediat rics (0 to 5 Years) and At-Risk Patients (6 to 49 Years) (1 of 2 - PCV) 2008 Cervical Cancer Screening: P ap Smear 07/12/2021 07/12/2018 HIV Screening 01/08/2022 Hepatitis C Screening 01/08/2022 Social Influencers of Health Screening 01/08/2022 Depression Screening 02/06/2024 Influenza Vaccine (#1) 2024 HIB Vaccines Aged Out No longer eligi ble based on patient's age to complete this topic HPV Vaccines Aged Out No longer eligi ble based on patient's age to complete this topic Hepatitis A Vaccines Aged Out No long er eligible based on patient's age to complete this topic IPV Vaccines Aged Out No longer eligi ble based on patient's age to complete this topic MMR Vaccines Aged Out No longer eligi ble based on patient's age to complete this topic Meningococcal ACWY Vaccine Aged Out N o longer eligible based on patient's age to complete this topic Meningococcal B Vaccine Aged Out No l onger eligible based on patient's age to complete this topic RSV Immunization Patients Un darnell 20 months Aged Out No longer eligible b ased on patient's age to complete this topic Varicella Vaccines Aged Out No longer eligible based on patient's age to complete this topic Procedures Procedure Name Priority Date/Time Associated Diagnosis Comments PAP SMEAR Routine 07/12/2018 from Last 3 Months or Most Recently Relevant to Health Maintenance Results * Pap smear (07/12/2018) 07/12/2018 Narrative HISTORICAL TESTING LAB RESULTING AGENCY - 07/17/2018 4:10 PM EDT [id number] THINPREP PAP, IMAGED: NEGATIVE FOR SQUAMOUS INTRAEPITHELIAL LESION AND MALIGNANCY . CLUE CELLS ARE PRESENT. MARCELL HEREDIA(ASCP) (CASE ELECTRONICALLY SIGNED 07 17 2018) ADEQUACY: SATISFACTORY ENDOCERVICAL/TRANSFORMATION ZONE COMPONENT ABSENT. SOURCE: THINPREP PAP HPV IF ASCUS, CERVICAL, IMAGED CLINICAL INFORMATION: HPV IF DIAGNOSIS OF ASCUS. Z12.4, Z01.419, HORMONES, PAP HX 2017 NEG CYTOLOGY WITH + ACTINOMYCES, REACTIVE CELLULAR CHANGES, LMP 07/02/2018 [facility] ORDERABLES Final Result HISTORICAL TESTING LAB RESULTING AGENCY from Last 3 Months or Most Recently Relevant to Health Maintenance Care Teams Dimension Mill Worker Relationship Specialty Start Date End Date Laxmi Helms MD PCP - General Pediatrics 03/17/16
[2024-10-10 11:25] LABS: White Blood Count 7.9 X10*3/uL (4.8-10.8)
[2024-10-10 11:26] LABS: Hematocrit 40.0 % (37.0-47.0); Hemoglobin 14.1 g/dl (12.0-16.0); Imm Gran Abs Auto 0.03 X10*3/uL (0.00-0.03); Imm Gran Pct Auto 0.4 % (0.0-0.4); Lymphocytes Absolute Auto 2.2 X10*3/uL (1.2-4.9); Mean Corpuscular HGB Conc 35.3 g/dl (31.0-35.0); Mean Corpuscular Hemoglobin 30.5 pg (27.0-33.0); Mean Corpuscular Volume 86.4 fL (80.0-98.0); NRBC Abs Auto 0.000 X10*3/uL (0.0-0.012); NRBC Pct Auto 0.0 /100WBC (0.0-0.2); Platelet Count 366 X10*3/uL (160-400); Red Blood Count 4.63 X10*6/uL (4.20-5.50)
[2024-10-10 11:35] LABS: Hemoglobin A1C 117.9546 umol/L; Total Hemoglobin (HGBA1C) 3607.8749 umol/L
[2024-10-10 11:55] LABS: Alanine Aminotransferase 32 U/L (0-31); Albumin Level 4.6 g/dL (3.5-5.0); Alkaline Phosphatase 91 U/L (39-117); Anion Gap 10 (12-20); Aspartate Amino Transferase 31 U/L (5-31); Blood Urea Nitrogen 12 mg/dL (9-16); Calcium 9.0 mg/dL (8.4-10.2); Carbon Dioxide 23 mmol/L (22-29); Chloride 110 mmol/L (96-108); Cholesterol 200 mg/dL (<200); Estimated Glomerular Filt Rate > 60; HDL Cholesterol 41 mg/dL (>40); Potassium 4.1 mmol/L (3.3-5.1); Sodium 139 mmol/L (135-145); Total Protein 7.7 g/dL (6.5-8.0); Triglycerides 140 mg/dL (<150)
[2024-10-10 12:00] LABS: Free T4 (Free Thyroxine) 1.09 ng/dL (0.71-1.85); Thyroid Stimulating Hormone 0.49 uIU/mL (0.32-4.0)
[2024-10-10 12:06] LABS: ~Hepatitis A Antibody IgG 0.68 S/CO (0.00-0.99)
[2024-10-10 12:10] LABS: HBS Num1 > 1000.00 mIU/mL (0-7.99); HBc Num1 0.05 S/CO (0.00-0.79); HBsAGNum1 0.43 S/CO (0.00-0.99); HIV Num 1 0.04 S/CO (0.00-0.99); Hepatitis B Surface Antigen Negative (Negative); ~HepC Num1 0.12 S/CO (0.00-0.79); ~Hepatitis B Surface Antibody REACTIVE (Nonreactive); ~Hepatitis C Antibody Nonreactive (Nonreactive)
[2024-10-11 12:28] LABS: Rubeola IgG (Measles) >300.00 AU/mL
== END 2024-10-10 10:21 | disposition home or self-care (01) ==
LOC: HO.HHCL 10:20
PROVIDERS: PCP Family Medicine; Visit Provider Family Medicine
DX: Z00.00 Encounter for general adult medical examination without abnormal findings (principal); Z11.3 Encounter for screening for infections with a predominantly sexual mode of transmission; Z11.4 Encounter for screening for human immunodeficiency virus [HIV]; Z11.59 Encounter for screening for other viral diseases; F41.9 Anxiety disorder, unspecified; K76.0 Fatty (change of) liver, not elsewhere classified; R07.9 Chest pain, unspecified; R42 Dizziness and giddiness; Z68.42 Body mass index [BMI] 45.0-49.9, adult; Z71.3 Dietary counseling and surveillance; Z71.82 Exercise counseling
CPT/HCPCS: 36415; 80048; 80061; 80076; 82105; 82306; 83036; 84439; 84443; 85025; 86481; 86592; 86704; 86706; 86708; 86735; 86762; 86765; 86787; 86803; 87340; 87389

== ENCOUNTER 2024-11-10 15:58 | Outpatient (REF) | payer MEDICAID, SELFPAY ==
--- OUTSIDE RECORDS SUMMARY | 2024-11-10 18:19 | XMS_ITS | Clinical Summary ---
Demographics Address [address] [place] [address] Mobile Phone Home Phone Email Address Preferred Language en Marital Status Single Hinduism Affiliation Unknown Race Other Race Ethnic Group Unknown Author Organization [employer] Address [address] [place] [address] Care Team Providers Care Hotel Breakfast Attendant Name Role Phone Rubina Rivas DO Primary Care Provider [phone] Allergies No known active allergies Medications naproxen (Naprosyn) 500 MG tablet Take 1 tablet (500 mg) by mouth if needed in the morning and at bedtime for mild pain. 40 tablet 1 5 10/11/19 26 Active baclofen (Lioresal) 10 MG tablet Take 1 tablet (10 mg) by mouth if needed in the morning, at noon, and at bedtime for muscle spasms. 40 tablet 1 5 12/10/19 25 Active Diclofenac Sodium 1 % gel Apply 2 g topically if needed in the morning, at noon, in the evening, and at bedtime (pain). 150 g 1 5 Active predniSONE (Deltasone) 20 MG tablet Take 1 tablet (20 mg) by mouth 2 times daily for 5 days. 10 tablet 5 10/16/19 25 meclizine (Antivert) 12.5 MG tablet Take 1 tablet (12.5 mg) by mouth if needed in the morning, at noon, and at bedtime for dizziness. 30 tablet 1 5 11/10/19 25 Active Problems Problem Noted Date Diagnosed Date Anxiety 10/10/2024 BMI 45.0-49.9, adult (CMS/HCC) 10/10/2024 Encounters Date Type Department Care Team Description 10/16/2024 Telephone [facility] [address] [place] [address] Rubina Rivas DO Results 10/10/2024 9:30 AM EDT Office Visit [facility] [address] [place] [address] Rubina Rivas, DO Routine history and physical examination of adult (Primary Dx); Anxiety; BMI 45.0-49.9, adult (CMS/HCC); Dietary counseling; Exercise counseling; Fatty liver; Chest pain, unspecified type; Dizziness 10/10/2024 Travel 10/09/2024 Travel 10/01/2024 Patient Outreach [facility] [address] [place] [address] Rubina Rivas DO Pre-visit Planning (SDOH screening negative and tobacco screening negative) 10/01/2024 Telephone [facility] [address] [place] [address] Rubina Rivas, Chart Prep 08/26/2024 Population Health [facility] () [address] [address] Provider, Population Health Generic from Last [...] Health Maintenance Due Date Last Done Comments Family Planning (PISQ) 2004 HPV Vaccines (1 - 3-dose series) 2004 DTaP/Tdap/Td Vaccines (1 - Tdap) 2008 Hepatitis [...] Screening 10/10/2025 10/10/2024 Tobacco Screening 10/10/2025 10/10/2024 Lipid Panel 10/10/2029 10/10/2024 Zoster Vaccines (1 of 2) 05/07/2039 RSV Patients and Patients Aged 60 years or older (1 - 1-dose 75+ series) 2064 HIV Screening Completed 10/10/2024, 04/06/2022, 04/06/2022 Hepatitis C Screening Completed 10/10/2024 HIB Vaccines Aged Out No longer eligi [...] Procedure Name Priority Date/Time Associated Diagnosis Comments CBC WITH AUTO DIFFERENTIAL Routine 10/10/2024 10:25 AM EDT Routine history and physical examination of adult Anxiety BMI 45.0-49.9, adult ([facility]) Dietary counseling Exercise counseling Fatty liver Chest pain, unspecified type Dizziness ALPHA FETOPROTEIN, TUMOR MARKER Routine 10/10/2024 10:25 AM EDT Routine history and physical examination of adult Anxiety BMI 45.0-49.9, adult ([facility]) Dietary counseling Exercise counseling Fatty liver Chest pain, unspecified type Dizziness MEASLES, MUMPS, AND RUBELLA (MMR) AB (IGG) PANEL, IMMUNE STATUS Routine 10/10/2024 10:25 AM EDT Routine history and physical examination of adult Anxiety BMI 45.0-49.9, adult ([facility]) Dietary counseling Exercise counseling Fatty liver Chest pain, unspecified type Dizziness VARICELLA ZOSTER ANTIBODY, IGG Routine 10/10/2024 10:25 AM EDT Routine history and physical examination of adult Anxiety BMI 45.0-49.9, adult ([facility]) Dietary counseling Exercise counseling Fatty liver Chest pain, unspecified type Dizziness HEPATITIS B CORE AB TOTAL Routine 10/10/2024 10:25 AM EDT Routine history and physical examination of adult Anxiety BMI 45.0-49.9, adult ([facility]) Dietary counseling Exercise counseling Fatty liver Chest pain, unspecified type Dizziness HEPATITIS A ANTIBODY, TOTAL Routine 10/10/2024 10:25 AM EDT Routine history and physical examination of adult Anxiety BMI 45.0-49.9, adult ([facility]) Dietary counseling Exercise counseling Fatty liver Chest pain, unspecified type Dizziness HEPATITIS B SURFACE ANTIBODY, QUALITATIVE Routine 10/10/2024 10:25 AM EDT Routine history and physical examination of adult Anxiety BMI 45.0-49.9, adult ([facility]) Dietary counseling Exercise counseling Fatty liver Chest pain, unspecified type Dizziness RPR (MONITOR) W/REFL TITER Routine 10/10/2024 10:25 AM EDT Routine history and physical examination of adult Anxiety BMI 45.0-49.9, adult ([facility]) Dietary counseling Exercise counseling Fatty liver Chest pain, unspecified type Dizziness HEPATITIS C AB W/REFL TO HCV RNA, QN, PCR Routine 10/10/2024 10:25 AM EDT Routine history and physical examination of adult Anxiety BMI 45.0-49.9, adult ([facility]) Dietary counseling Exercise counseling Fatty liver Chest pain, unspecified type Dizziness HIV 1/2 ANTIGEN/ANTIBODY, FOURTH GENERATION W/RFL Routine 10/10/2024 10:25 AM EDT Routine history and physical examination of adult Anxiety BMI 45.0-49.9, adult (CMS/[facility]) Dietary counseling Exercise counseling Fatty liver Chest pain, unspecified type Dizziness HEPATITIS B SURFACE ANTIGEN, EIA Routine 10/10/2024 10:25 AM EDT Routine history and physical examination of adult Anxiety BMI 45.0-49.9, adult (CMS/[facility]) Dietary counseling Exercise counseling Fatty liver Chest pain, unspecified type Dizziness BASIC METABOLIC PANEL Routine 10/10/2024 10:25 AM EDT Routine history and physical examination of adult Anxiety BMI 45.0-49.9, adult (CMS/HCC) Dietary counseling Exercise counseling Fatty liver Chest pain, unspecified type Dizziness HEMOGLOBIN A1C Routine 10/10/2024 10:25 AM EDT Routine history and physical examination of adult Anxiety BMI 45.0-49.9, adult (CMS/HCC) Dietary counseling Exercise counseling Fatty liver Chest pain, unspecified type Dizziness HEPATIC FUNCTION PANEL Routine 10/10/2024 10:25 AM EDT Routine history and physical examination of adult Anxiety BMI 45.0-49.9, adult (CMS/HCC) Dietary counseling Exercise counseling Fatty liver Chest pain, unspecified type Dizziness VITAMIN D,25-OH,TOTAL,IA Routine 10/10/2024 10:25 AM EDT Routine history and physical examination of adult Anxiety BMI 45.0-49.9, adult (CMS/HCC) Dietary counseling Exercise counseling Fatty liver Chest pain, unspecified type Dizziness TSH Routine 10/10/2024 10:25 AM EDT Routine history and physical examination of adult Anxiety BMI 45.0-49.9, adult (CMS/HCC) Dietary counseling Exercise counseling Fatty liver Chest pain, unspecified type Dizziness LIPID PANEL, STANDARD Routine 10/10/2024 10:25 AM EDT Routine history and physical examination of adult Anxiety BMI 45.0-49.9, adult (CMS/HCC) Dietary counseling Exercise counseling Fatty liver Chest pain, unspecified type Dizziness T4, FREE Routine 10/10/2024 10:25 AM EDT Routine history and physical examination of adult Anxiety BMI 45.0-49.9, adult (CMS/HCC) Dietary counseling Exercise counseling Fatty liver Chest pain, unspecified type Dizziness from Last 3 Months Results * Vitamin D, 25-Hydroxy, Total, Immunoassay (10/10/2024 10:25 AM EDT) [facility] Vitamin D 25-OH Total 33.6 >30 ng/mL [facility] Comment: Health Based Reference Values*< 20 ng/mL Ugclgjvtq64-45 ng/mL Insufficient> 30 ng/mL Sufficient*Maddi REINA. N Engl J Med. 2007;357:266-280There is no well-established upper level of normal vitamin Dlevels. Some laboratories use 50 ng/mL as an upper limit ofnormal. However, toxicity is patient-dependent and may occurat any level. Careful correlation with the patient'spresentation is necessary and, if there is concern forvitamin D toxicity, treatment should be consideredirrespective of the serum level.Care must be taken in interpreting Vitamin D results fromdifferent laboratories and methodologies. Published datademonstrated that results from patients undergoinghemodialysis may show a negative bias when tested withvarious automated 25-OH vitamin D assays when compared toLC-MS/MS.When testing samples from patients whose predominant form ofVitamin D is Vitamin D2, such as patients receiving VitaminD2 supplementation, results that are subtherapeutic shouldbe confirmed with another method such as LC-MS/MS. Blood Venous blood specimen / Unknown 10/10/2024 10:25 AM EDT 10/10/2024 11:13 AM EDT us Rubina Rivas DO LAB BLOOD ORDERABLES Final R esult [facility] [address] [place] [phone] [phone] * (ABNORMAL) Measles, Mumps, and Rubella (MMR) Antibodies??(IgG) Panel, Immune Status (10/10/2024 10:25 AM EDT) Mumps Virus IgG Antibody <9.00(A) AU/mL [facility] Comment:AU/mL Interpretation ------- <9.00 Not consistent with immunity9.00-10.99 Equivocal>10.99 Consistent with immunityThe presence of mumps IgG antibody suggests immunizationor past or current infection with mumps virus. Rubella IgG Antibody 4.61 Index [facility] Comment:Index Interpretation ----- <0.90 Not consistent with immunity 0.90-0.99 Equivocal > or = 1.00 Consistent with immunityThe presence of rubella IgG antibody suggestsimmunization or past or current infection withrubella virus.THIS TEST WAS PERFORMED AT:[employer] [place] [phone] POPE MD Rubeola IgG (Measles) >300.00 AU/mL [facility] Comment:AU/mL Interpretation ----- <13.50 Not consistent with .50-16.49 Equivocal>16.49 Consistent with immunityThe presence of measles IgG suggests immunization orpast or current infection with measles virus.For additional information, please refer [email or web address]/[email or web address](This link is being provided for informational/educational purposes only.) Blood Venous blood specimen / Unknown 10/10/2024 10:25 AM EDT 10/10/2024 11:13 AM EDT us Rubina Rivas DO LAB BLOOD ORDERABLES Final R esult [facility] [address] [place] [phone] * (ABNORMAL) CBC auto differential (10/10/2024 10:25 AM EDT) White Blood Count 7.9 4.8 - 10.8 X10*3/uL [facility] Red Blood Count 4.63 4.20 - 5.50 X10*6/uL [facility] Hemoglobin 14.1 12.0 - 16.0 g/dl [facility] Hematocrit 40.0 37.0 - 47.0 % [facility] Mean Corpuscular Volume 86.4 80.0 - 98.0 fL [facility] Mean Corpuscular Hemoglobin 30.5 27.0 - 33.0 pg [facility] Mean Corpuscular HGB Conc 35.3(H) 31.0 - 35.0 g/dl [facility] Red Cell Distribution Width 12.6 11.0 - 16.0 % [facility] Platelet Count 366 160 - 400 X10*3/uL [facility] Mean Platelet Volume 10.7 9.4 - 12.3 fL [facility] Neutrophils Percent Auto 63.8 45 - 73 % [facility] Imm Gran Pct Auto 0.4 0.0 - 0.4 % [facility] Lymphocytes Percent Auto 27.6 20 - 40 % [facility] Monocytes Percent Auto 4.9 2 - 11 % [facility] Eosinophils Percent Auto 2.5 0 - 4 % [facility] Basophils Percent Auto 0.8 0 - 2 % [facility] NRBC Pct Auto 0.0 0.0 - 0.2 /100WBC [facility] Neutrophils Absolute Auto 5.0 2.0 - 8.3 x10*3/uL [facility] Imm Gran Abs Auto 0.03 0.00 - 0.03 X10*3/uL [facility] Lymphocytes Absolute Auto 2.2 1.2 - 4.9 X10*3/uL [facility] Monocytes Absolute Auto 0.4 0.1 - 1.2 X10*3/uL [facility] Eosinophils Absolute Auto 0.2 0.0 - 0.4 X10*3/uL [facility] Basophils Absolute Auto 0.1 0.0 - 0.2 X10*3/uL [facility] NRBC Abs Auto 0.000 0.0 - 0.012 X10*3/uL [facility] Blood Venous blood specimen / Unknown 10/10/2024 10:25 AM EDT 10/10/2024 11:13 AM EDT Rubina Rob LAB BLOOD ORDERABLES Final R ult Performing Organization Address [facility] Co de Phone Number [facility] [address] [place] [phone] * Hepatitis C Antibody with Reflex to HCV, RNA, Quantitative, Real-Time PCR (10/10/2024 10:25 AM EDT) Hepatitis C Antibody Nonreactive Nonreactive [facility] Comment:Antibodies to HCV no t detected; does not exclude early acuteHCV infection. Blood Venous blood specimen / Unknown 10/10/2024 10:25 AM EDT 10/10/2024 11:13 AM EDT Rubina Rob LAB BLOOD ORDERABLES Final R esult Performing Organization Address [facility] Co de Phone Number [facility] [address] [place] [phone] * Hepatitis A Antibody, Total (10/10/2024 10:25 AM EDT) Hepatitis A Antibody IgG Nonreactive Nonreactive [facility] Blood Venous blood specimen / Unknown 10/10/2024 10:25 AM EDT 10/10/2024 11:13 AM EDT Rubina Flowervandanadung AVILA LAB BLOOD ORDERABLES Final R esult Performing Organization Address [facility]/ZIP Co de Phone Number [facility] [address] [place] [phone] * Alpha-Fetoprotein, Tumor Marker (10/10/2024 10:25 AM EDT) Alpha Fetoprotein 2.6 ng/mL [facility] Comment:Reference Range: <6. 1The use of AFP as a tumor marker in females is not recommended.This test was performed using the [employer] Coulterchemiluminescent method. Values obtained fromdifferent assay methods cannot be usedinterchangeably. AFP levels, regardless ofvalue, should not be interpreted as absoluteevidence of the presence or absence of disease.THIS TEST WAS PERFORMED AT:[employer] [address] [phone] POPE MD Blood Venous blood specimen / Unknown 10/10/2024 10:25 AM EDT 10/10/2024 11:13 AM EDT Rubina Rob AVILA LAB BLOOD ORDERABLES Final R esult Performing Organization Address [facility] Co de Phone Number [facility] [address] [place] [phone] * Hepatitis B surface antigen, EIA (10/10/2024 10:25 AM EDT) Hepatitis B Surface Ag Negative Negative [facility] Blood Venous blood specimen / Unknown 10/10/2024 10:25 AM EDT 10/10/2024 11:13 AM EDT Rubina Flowerkevin LAB BLOOD ORDERABLES Final R esult Performing Organization Address City/[facility]/ZIP Co de Phone Number [facility] [address] [place] [phone] * Hepatitis B Core Antibody, Total (10/10/2024 10:25 AM EDT) Hepatitis B Core Antibody Nonreactive Nonreactive [facility] Blood Venous blood specimen / Unknown 10/10/2024 10:25 AM EDT 10/10/2024 11:13 AM EDT us Rubina Rob DO LAB BLOOD ORDERABLES Final R esult Performing Organization Address [facility] Co de Phone Number [facility] [address] [place] [phone] * RPR (Monitor) with Reflex to??Titer (10/10/2024 10:25 AM EDT) Pathologist [facility] RPR (Monitor) w/Refl Titer NON-REACTI VE NON-REACT CHRISS [facility] Comment:THIS TEST WAS PERFOR MED AT:[employer] [address] [phone] POPE MD Rapid Plasma Reagin Ab Titer TNP [facility] Blood Venous blood specimen / Unknown 10/10/2024 10:25 AM EDT 10/10/2024 11:13 AM EDT us Rubinaemmy Rivas DO LAB BLOOD ORDERABLES Final R esult Performing Organization Address [facility] Co de Phone Number [facility] [address] [place] [phone] * HIV-1/2 Antigen and Antibodies, Fourth Generation, with Reflexes (10/10/2024 10:25 AM EDT) HIV AB/AG Nonreactive Nonreactive [facility] Comment:HIV-1 p24 Ag and/or HIV-1/HIV-2 Ab not detected.A test result that is nonreactive does not exclude thepossibility of exposure to or infection with HIV-1 and/orHIV-2. Nonreactive results in this assay for individualswith prior exposure to HIV-1 and/or HIV-2 may be due toantigen and antibody levels that are below the limit ofdetection of this assay.The [employer] HIV Ag/Ab Combo assay result andsupplemental assay results should be interpreted inconjunction with the patient's clinical presentation,history and other laboratory results. If the results areinconsistent with clinical evidence, additional testing issuggested to confirm the result. Blood Venous blood specimen / Unknown 10/10/2024 10:25 AM EDT 10/10/2024 11:13 AM EDT Rubina Rivas LAB BLOOD ORDERABLES Final R esult Performing Organization Address [facility] de Phone Number [facility] [address] [place] [phone] * Hepatitis B Surface Antibody, Qualitative (10/10/2024 10:25 AM EDT) Pathologist [facility] ~Hepatitis B Surface Antibody REACTIVE Nonreactive [facility] Comment:REACTIVE: > 11.99 mI U/mL Blood Venous blood specimen / Unknown 10/10/2024 10:25 AM EDT 10/10/2024 11:13 AM EDT Rubina Rivas LAB BLOOD ORDERABLES Final R esult Performing Organization Address [facility] Co de Phone Number [facility] [address] [place] [phone] * Varicella zoster antibody, IgG (10/10/2024 10:25 AM EDT) Pathologist [facility] Varicella IgG Antibody 9.02 S/CO [facility] Comment:Signal to Cut-off S/ CO Interpretation --------- <1.00 Negative - Antibody not detected > or = 1.00 Positive - Antibody detected A positive result indicates that the patient has antibody to VZV but does not differentiate between an active or past infection. The clinical diagnosis must be interpreted in conjunction with the clinical signs and symptoms of the patient. This assay reliably measures immunity due to previous infection but may not be sensitive enough to detect antibodies induced by vaccination. Thus, a negative result in a vaccinated individual does not necessarily indicate susceptibility to VZV infection. A more sensitive test for vaccination-induced immunity is Varicella Zoster Virus Antibody Immunity Screen, ACIF.THIS TEST WAS PERFORMED AT:[employer] [place] [phone] POPE MD Blood Venous blood specimen / Unknown 10/10/2024 10:25 AM EDT 10/10/2024 11:13 AM EDT Rubina Rivas LAB BLOOD ORDERABLES Final R esult Performing Organization Address [facility]/ZIP Co de Phone Number [facility] [address] [place] [phone] * TSH (10/10/2024 10:25 AM EDT) Pathologist [facility] Thyroid Stimulating Hormone 0.49 0.32 - 4.0 uIU/mL [facility] Comment:TSH 3rd Generation ( [facility]) Blood Venous blood specimen / Unknown 10/10/2024 10:25 AM EDT 10/10/2024 11:13 AM EDT Rubina Rivas LAB BLOOD ORDERABLES Final R esult Performing Organization Address [facility]/ZIP Co de Phone Number [facility] [address] [place] [phone] * T4, Free (10/10/2024 10:25 AM EDT) Free T4 (Free Thyroxine) 1.09 0.71 - 1.85 ng/dL [facility] Blood Venous blood specimen / Unknown 10/10/2024 10:25 AM EDT 10/10/2024 11:13 AM EDT us Rubina Rob DO LAB BLOOD ORDERABLES Final R esult [facility] [address] [place] [phone] * Hemoglobin A1c (10/10/2024 10:25 AM EDT) Hemoglobin A1c 5.1 <6.0 % [facility] Comment:Hemoglobin A1C Refer ence Range Adults: 4.8 - 6.0 % Non diabetic: < 6.0 % Goal: < 7.0 %Additional Action Suggested: > 8.0 %Note: Hemoglobin A1c results are invalid for patients with abnormal amounts of HbF. Blood transfusions may impact the HbA1c concentration in the patient sample. Estimated Average Glucose 100 mg/dL [facility] Comment:eAG = Estimated ave rage glucose which is %A1C expressed asaverage glucose, using the formula of the H7S-UnysauwDmawtpz Glucose study (ADAG), Diabetes Care, Vol.31,#8,Sep. 2007 Blood Venous blood specimen / Unknown 10/10/2024 10:25 AM EDT 10/10/2024 11:13 AM EDT us Rubina Rivas DO LAB BLOOD ORDERABLES Final R esult [facility] [address] [place] [phone] * (ABNORMAL) Hepatic Function Panel (10/10/2024 10:25 AM EDT) Bilirubin, Total 0.4 0.0 - 1.0 mg/dL [facility] Bilirubin, Direct 0.1 0.0 - 0.5 mg/dL [facility] Aspartate Amino Transferase 31 5 - 31 U/L [facility] Alanine Aminotransferase 32(H) 0 - 31 U/L [facility] Total Protein 7.7 6.5 - 8.0 g/dL [facility] Albumin Level 4.6 3.5 - 5.0 g/dL [facility] Alkaline Phosphatase 91 39 - 117 U/L [facility] Blood Venous blood specimen / Unknown 10/10/2024 10:25 AM EDT 10/10/2024 11:13 AM EDT Rubina Rivas LAB BLOOD ORDERABLES Final R esult Performing Organization Address [facility] de Phone Number [facility] [address] [place] [phone] * (ABNORMAL) Lipid Panel, Standard (10/10/2024 10:25 AM EDT) Triglycerides 140 <150 mg/dL [facility] Comment:Desirable Triglyceri de: less than 150 mg/dLBorderline High Triglyceride 150-199 mg/dLHigh Triglyceride: 200-499 mg/dLVery High Triglyceride: greater than or equal to 5OO mg/dL Cholesterol 200(H) <200 mg/dL [facility] Comment:Desirable Cholestero l: less than 200 mg/dLBorderline High Cholesterol: 200-239 mg/dLHigh Cholesterol: greater than 239 mg/dL LDL Cholesterol Calculated 131(H) <100 mg/dL [facility] Comment:Desirable LDL: less than 100 mg/dLNear Optimal/Above Optimal LDL: 110- 129 mg/dLBorderline High LDL: 130-159 mg/dLHigh LDL: 160-189 mg/dLVery High LDL: greater than or equal to 190 mg/dL HDL Cholesterol 41 >40 mg/dL [facility] Comment:Desirable HDL: great er than 40 mg/dL Note: This HDL assay may give artificially low results in patients with liver disease. Blood Venous blood specimen / Unknown 10/10/2024 10:25 AM EDT 10/10/2024 11:13 AM EDT Rubina Rivas DO LAB BLOOD ORDERABLES Final R esult Performing Organization Address City/[facility] Co de Phone Number [facility] [address] [place] [phone] [phone] * (ABNORMAL) Basic Metabolic Panel (10/10/2024 10:25 AM EDT) Sodium 139 135 - 145 mmol/L [facility] Potassium 4.1 3.3 - 5.1 mmol/L [facility] Chloride 110(H) 96 - 108 mmol/L [facility] Carbon Dioxide 23 22 - 29 mmol/L [facility] Anion Gap 10(L) 12 - 20 [facility] Urea Nitrogen (BUN) 12 9 - 16 mg/dL [facility] Creatinine, Serum 0.71 0.5 - 1.4 mg/dL [facility] Estimated Glomerular Filt Rate >60 [facility] Comment:Chronic Kidney Disea se: Estimated GFR < 60 mL/min/1.18n7Dygeiy Kidney Disease: Estimated GFR < 15 mL/min/1.73m2 Glucose 98 60 - 115 mg/dL [facility] Calcium 9.0 8.4 - 10.2 mg/dL [facility] Blood Venous blood specimen / Unknown 10/10/2024 10:25 AM EDT 10/10/2024 11:13 AM EDT us Rubina Rivas DO LAB BLOOD ORDERABLES Final R esult [facility] [address] [place] [address] [phone] from Last 3 Months Insurance [facility] C[facility] * Guarantor: Caterina Thomas Account Type Relation to Patient Date of Phone Billing Address Personal/Family Self [address] [place] [address] * Guarantor: Caterina Thomas Account Type Relation to Patient Date of Phone Billing Address Personal/Family Self [address] [place] [address] Care Teams Hotel Breakfast Attendant Relationship Specialty Start Date End Date Rubina Rivas DO [address] [place] [phone] PCP - General Family Medicine 10/10/24
--- OUTSIDE RECORDS SUMMARY | 2024-11-10 18:19 | XMS_ITS | Clinical Summary ---
Demographics Address [address] [place] [address] Home Phone Work Phone Mobile Phone Email Address Preferred Language en Marital Status Single Yarsanism Affiliation Unknown Race Unknown Ethnic Group or Author Organization [email or web address] [facility] it Address [address] [place] [address] Support Name Relationship Address Phone Shahriar Mcintyre Unrelated friend [address] [place] [address] Demar Hutchins Daughter [address] [place] [address] Care Team Providers Care Practice Business Asst Name Role Phone Laxmi Helms MD Primary [...] Years) (1 of 2 - PCV) 2008 HPV Vaccines (1 - Risk 3-dos e SCDM series) 2016 Cervical Cancer Screening: P ap Smear 07/12/2021 07/12/2018 HIV Screening 01/08/2022 Hepatitis C Screening 01/08/2022 Social Influencers of Health Screening 01/08/2022 Depression Screening 02/06/2024 Influenza Vaccine (#1) 2024 RSV Immunization Adult Patie nts (1 - 1-dose 75+ series) 2064 HIB Vaccines Aged Out No longer eligi [...] RESULTING AGENCY - 07/17/2018 4:10 PM EDT [id number] THINPREP PAP, IMAGED: NEGATIVE FOR SQUAMOUS INTRAEPITHELIAL LESION AND MALIGNANCY . CLUE CELLS ARE PRESENT. FARZAD ROD , MARCELL(ASCP) (CASE ELECTRONICALLY SIGNED 07 17 2018) ADEQUACY: SATISFACTORY ENDOCERVICAL/TRANSFORMATION ZONE COMPONENT ABSENT. SOURCE: THINPREP PAP HPV IF ASCUS, CERVICAL, IMAGED CLINICAL INFORMATION: HPV IF DIAGNOSIS OF ASCUS. Z12.4, Z01.419, HORMONES, PAP HX 2016 NEG CYTOLOGY WITH + ACTINOMYCES, REACTIVE CELLULAR CHANGES, LMP 07/02/2018 Basilia Cole [facility] CYTOLOGY ORDERABLES Final Result HISTORICAL TESTING LAB RESULTING AGENCY from Last 3 Months or Most Recently Relevant to Health Maintenance Care Teams Practice Business Asst Relationship Specialty Start Date End Date Laxmi Helms MD PCP - General Pediatrics 03/17/16
[2024-11-13 05:40] LABS: TS Negative Control Passed; TS Panel A 0; TS Panel B 0; TS Positive Control Passed; TSpotTB Negative (Negative)
== END 2024-11-10 15:59 | disposition home or self-care (01) ==
LOC: HO.LAB 15:58
PROVIDERS: PCP Family Medicine; Visit Provider Family Medicine
DX: Z00.00 Encounter for general adult medical examination without abnormal findings (principal); Z11.1 Encounter for screening for respiratory tuberculosis; F41.9 Anxiety disorder, unspecified; K76.0 Fatty (change of) liver, not elsewhere classified; R07.9 Chest pain, unspecified; R42 Dizziness and giddiness; Z68.42 Body mass index [BMI] 45.0-49.9, adult; Z71.3 Dietary counseling and surveillance; Z71.82 Exercise counseling
CPT/HCPCS: 86481

== ENCOUNTER 2024-11-25 13:47 | Outpatient (REF) | payer MEDICAID, SELFPAY ==
--- NOTE | ~2024-11-25 | XR_ITS ---
EXAMINATION: XR SHOULDER, LEFT CLINICAL INFORMATION: shoulder pain extending to mid upper arm COMPARISON: None available. TECHNIQUE: Three views of the left shoulder. FINDINGS: AC joint is intact. Glenohumeral joint demonstrates no dislocation. No degenerative changes are evident. No fracture is identified. XR/XR shoulder LT min 2V IMPRESSION: Unremarkable left shoulder Electronically signed by: Inocencio Coreas MD 11/25/2024 03:16 PM EDT
--- NOTE | ~2024-11-25 | XR_ITS ---
EXAMINATION: XR CERVICAL SPINE CLINICAL INFORMATION: PAIN COMPARISON: None available. TECHNIQUE: AP lateral, atlantoodontoid view and swimmer's projection FINDINGS: Craniocervical junction is intact. No acute cortical disruption or malalignment. No lytic or blastic lesions. Small marginal osteophyte formation C5-6. Upper airway is patent. XR/XR cervical spine 3V IMPRESSION: Mild cervical spondylosis C5-6. Electronically signed by: Monico Platt MD 11/25/2024 03:16 PM EDT
--- OUTSIDE RECORDS SUMMARY | 2024-11-25 11:45 | XMS_ITS | Encounter Summary ---
Demographics Address [address] [place] [address] Mobile Phone Home Phone Email Address m Preferred Language en Marital Status Single Catholic Affiliation Unknown Race Other Race Ethnic Group Unknown Author Organization [employer] Address [address] [place] [address] Care Team Providers Care Floor Layer Helper Name Role Phone Rubina Rivas DO Primary Care Provider [phone]- [phone] Encounter Details Date Type Department Care Team ([facility] st Contact Info) Description 11/25/2024 11:45 AM EDT Office Visit [facility] [address] [place], [place] [phone] Rubina Rivas DO [address] [place], [place] [phone] Chronic left shoulder pain (Primary Dx) Social History Tobacco Use Types Packs/Day Years [...] Sign Reading Time Taken Comments Blood Pressure 112/60 11/25/2024 11:55 AM EDT Pulse 90 11/25/2024 11:55 AM EDT Temperature 36.9 C (98.4 F) 11/25/2024 11:55 AM EDT Respiratory Rate 20 11/25/2024 11:55 AM EDT Oxygen Saturation 99% 11/25/2024 11:55 AM EDT Inhaled Oxygen Concentration - - Weight 121 kg (266 lb) 11/25/2024 11:55 AM EDT Height 162.6 cm (5' 4 ) 11/25/2024 11:55 AM EDT Body Mass Index 45.66 11/25/2024 11:55 AM EDT documented in this encounter Plan of Treatment Scheduled Orders Name Type Priority Associated Diagnoses Orde r Schedule XR Cervical Spine 2-3 Views Imaging Routine Chronic left shoulder pain Expected: 11/25/2024, Expires: 11/25/2025 documented as of this encounter Procedures Procedure Name Priority Date/Time Associated Diagnosis Comments XR SHOULDER 2+ VIEWS LEFT Routine 11/25/2024 2:43 PM EDT Chronic left shoulder pain documented in this encounter Results * XR Shoulder 2+ Views Left (11/25/2024 2:43 PM EDT) Anatomical Region Laterality Modality Upper Extremities, Shoulder Left Radi ographic Imaging 11/25/2024 2:43 PM EDT Narrative 11/25/2024 3:19 PM EDT [address] [address] XRay Report Signed Patient: Caterina Thomas MR#: [id number] 2400 : 1990 Acct:[id number] Age/Sex: 34 / F ADM Date: 11/25/24 [facility] Attending Dr: Rubina Rivas DO Ordering Physician: Rubina Rivas DO Date of Service: 11/25/24 Procedure(s): XR shoulder LT min 2V Accession Number(s): [id number] cc: Rubina Rivas DO Reason for Exam: shoulder pain extending to mid upper arm EXAMINATION: XR SHOULDER, LEFT CLINICAL INFORMATION: shoulder pain extending to mid upper arm COMPARISON: None available. TECHNIQUE: Three views of the left shoulder. FINDINGS: AC joint is intact. Glenohumeral joint demonstrates no dislocation. No degenerative changes are evident. No fracture is identified. XR/XR shoulder LT min 2V IMPRESSION: Unremarkable left shoulder Electronically signed by: Inocencio Coreas MD 11/25/2024 03:16 PM EDT Dictated By: Inocencio Coreas MD Signed By: <Electronically signed by Inocencio Coreas MD in OV> 11/25/24 1516 DD/ 1443 TD/TT: 11/25/24 1508 Packing Line Worker: Procedure Note Donotuseinterpreter, Image - 11/25/[address] [address] XRay Report Signed Patient: Caterina ThomasMR#: [id number] 2400 : 1990Acct:[id number] Age/Sex: 34 / FADM Date: 11/25/24 [facility]: Rubina Rivas DO Ordering Physician: Rubina Rivas DO Date of Service: 11/25/24 Procedure(s): XR shoulder LT min 2V Accession Number(s): [id number] cc: Rubina Rivas DO Reason for Exam: shoulder pain extending to mid upper arm EXAMINATION: XR SHOULDER, LEFT CLINICAL INFORMATION: shoulder pain extending to mid upper arm COMPARISON: None available. TECHNIQUE: Three views of the left shoulder. FINDINGS: AC joint is intact. Glenohumeral joint demonstrates no dislocation. No degenerative changes are evident. No fracture is identified. XR/XR shoulder LT min 2V IMPRESSION: Unremarkable left shoulder Electronically signed by: Inocencio Coreas MD 11/25/2024 03:16 PM EDT RP Dictated By: Inocencio Coreas MD Signed By: <Electronically signed by Inocencio Coreas MD in OV> 11/25/24 1516 DD/ 1443 TD/TT: 11/25/24 1508 Packing Line Worker: Rubina Rivas DO IMG XR PROCEDURES Final Resu lt documented in this encounter Visit Diagnoses Diagnosis Chronic left shoulder pain- Primary Pain in joint, shoulder region documented in this encounter Additional Health Concerns Assessment Noted Time PHQ-9 Depression Total Score: 10 025 10:25 AM EDT documented as of this encounter Care Teams Floor Layer Helper Relationship Specialty Start Date End Date Rubina Rivas DO [address] [place] [id number] PCP - General Family Medicine 10/10/24 documented as of this encounter
--- OUTSIDE RECORDS SUMMARY | 2024-11-25 18:20 | XMS_ITS | Clinical Summary ---
Author Organization [facility] Address [address] [place] [address] Care Team Providers Care Court Of Appeals Judge Name Role Phone Travon Reyes MD Primary Care Provider Source Comments PLEASE NOTE, if this patient [...] 03/14/2024 Overview (03/14/2024): Paraguard placed 02/2020 at [facility] Food insecurity 03/14/2024 Financial difficulties 03/14/2024 Housing problems 03/14/2024 Mixed hyperlipidemia 06/01/2023 Class 3 severe obesity due t o excess calories with serious comorbidity and body mass index (BMI) of 45.0 to 49.9 in adult 08/06/2022 Carpal tunnel syndrome, bilateral 09/20/2020 Resolved Problems Problem Noted Date Diagnosed Date Resolved Date Ex-smoker for less than 1 year 09/20/2020 05/02/2022 Encounter for insertion of ParaGard IUD 08/23/2020 05/02/2022 Overview (08/23/2020): Feb 2020 at [facility] Immunizations Immunization Administration Dates Next Due Flu, [...] enough money to get more. 2 03/14/19 25 Transportation Needs Answer Date Record ed Hard [...] Due Date Last Done Comments HPV Screening (self-collect) 1989 HPV Screening 1989 Imm-HPV (1 - 3-dose SCDM series) 2016 Breast Cancer Screening (Mammogram) 02/07/2023 02/07/2022 Depression Monitoring 06/11/2024 03/14/2024 , 05/02/2022, 08/23/2020 [id number] ( season) 2024 021, 12/10/2020 Annual Wellness (Adult): Indicated (All Coverage) 03/14/2025 03/14/2024, 08/03/2022 Anxiety Screening 03/14/2025 03/14/2024 Relationship Safety Screening/Counseling 03/14/2025 03/14/2024, 05/02/2022, 08/23/2020 Pap Smear 04/06/2025 04/06/2022, 07/12/2018 Hypertension Screening (#1) 08/05/2025 Tobacco Screening 08/05/2025 08/05/2024, , 08/23/2020 Diabetes Screening 03/14/2027 03/14/2024, 0 03/14/2024, 06/01/2023, Additional history exists Lipid Screening 03/14/2027 03/14/2024, 05/07, 05/05/2022, Additional history exists Cervical Cancer Screening 04/07/2027 Pap + HPV 04/07/2027 04/06/2022, 07/12/2018 Imm-Influenza Discontinued 12/10/2020 HIV Screening Completed 04/06/2022 Hepatitis C Screening Completed 04/06/2022 Alcohol and Drug Screen Completed 03/14/19, 08/03/2022, 05/02/2022, Additional history exists Cervical Ablation/Cold-Knife Conization Discontinued Cervical Cryotherapy Discontinued Colposcopy Discontinued Excision/Leep Discontinued HPV Genotyping Discontinued Imm-DTaP/Tdap/Td Discontinued Imm-Hepatitis B Discontinued Vaginal Pap Discontinued Vulvoscopy Discontinued Procedures Procedure Name Priority Date/Time Associated Diagnosis Comments COMPREHENSIVE METABOLIC PANEL Routine 03/14/2024 1:48 PM EST Routine general medical examination at a health care facility LIPID PANEL Routine 03/14/2024 1:48 PM EST Routine general medical examination at a [facility] care facility HIV 1/2 AG & AB [...] (ABNORMAL) LIPID PANEL (03/14/2024 1:48 PM EST) CHOLESTEROL, TOTAL 199 <200 mg/dL [facility] HDL CHOLESTEROL 45(L) > OR = 50 mg/dL [facility] TRIGLYCERIDES 154(H) <150 mg/dL [facility] LDL-CHOLESTEROL 127(H) 99 mg/dL (calc) [facility] Comment: Reference range: <100 Desirable range <100 mg/dL for primary prevention; <70 mg/dL for patients with CHD or diabetic patients with > or = 2 CHD risk factors. LDL-C is now calculated using the Melody calculation, which is a validated novel method providing better accuracy than the Friedewald equation in the estimation of LDL-C. Augustine SS et al. ADALGISA. 2013;310(19): 6940-9022 (http://education.[employer]/faq/CGV039) CHOL/HDLC RATIO 4.4 <5.0 (calc) [facility] NON-HDL CHOLESTEROL 154(H) <130 mg/dL (calc) [facility] Comment: For patients with diabetes plus 1 major ASCVD risk factor, treating to a non-HDL-C goal of <100 mg/dL (LDL-C of <70 mg/dL) is considered a therapeutic option. Blood Blood / Unknown 03/14/2024 1 :48 PM EST 03/14/2024 1:49 PM EST Narrative [facility] - 03/15/2024 8:03 AM EST FASTING:YES Travon Reyes MD LAB - BLOOD DRAW Final Result Performing Organization Address City/State/[facility] Co de Phone Number [facility] [address] [place] [phone], [facility] [address] [place] [phone] * (ABNORMAL) COMPREHENSIVE METABOLIC PANEL (03/14/2024 1:48 PM EST) GLUCOSE 95 65 - 99 mg/dL [facility] Comment: Fasting reference interval UREA NITROGEN (BUN) 15 7 - 25 mg/dL [facility] CREATININE (blood) 0.84 0.50 - 0.97 mg/dL [facility] EGFR 93 > OR = 60 mL/min/1. 73m2 [facility] BUN/CREATININE RATIO SEE NOTE: [facility] Comment: Not Reported: BUN and Creatinine are within reference range. SODIUM 140 135 - 146 mmol/L [facility] POTASSIUM 5.2 3.5 - 5.3 mmol/L [facility] CHLORIDE 105 98 - 110 mmol/L [facility] CARBON DIOXIDE 25 20 - 32 mmol/L [facility] CALCIUM 10.1 8.6 - 10.2 mg/dL [facility] PROTEIN, TOTAL 7.7 6.1 - 8.1 g/dL [facility] ALBUMIN 4.7 3.6 - 5.1 g/dL [facility] GLOBULIN 3.0 1.9 - 3.7 g/dL (calc) [facility] ALBUMIN/GLOBULI N RATIO 1.6 1.0 - 2.5 (calc) [facility] BILIRUBIN, TOTAL 0.5 0.2 - 1.2 mg/dL [facility] ALKALINE PHOSPHATASE 69 31 - 125 U/L [facility] AST 21 10 - 30 U/L [facility] ALT 41(H) 6 - 29 U/L [facility] Blood Blood / Unknown 03/14/2024 1 :48 PM EST 03/14/2024 1:49 PM EST Narrative [facility] - 03/15/2024 8:03 AM EST FASTING:YES us Travon Reyes MD LAB - BLOOD DRAW Edited Result - Final [facility] [address] [address], [facility] [address] [address] * HEPATITIS C AB W/RFLX HCV RNA, QT, RT PCR (04/06/2022 11:30 AM EST) HEPATITIS C ANTIBODY NON-REACT CHRISS NON-REACT CHRISS [facility] SIGNAL TO CUT-OFF 0.04 <1.00 [facility] Comment: HCV antibody was non-reactive. There is no laboratory evidence of HCV infection. In most cases, no further action is required. However, if recent HCV exposure is suspected, a test for HCV RNA (test code 05888) is suggested. For additional information please refer to http://education.wiseri/faq/XQA87z1 (This link is being provided for informational/ educational purposes only.) Blood Blood / Unknown 04/06/2022 1 1:30 AM EST 04/06/2022 11:31 AM EST us Travon Reyes MD LAB - BLOOD DRAW Edited Result - Final Performing Organization Address City/[facility]/ZIP Co de Phone Number [facility] [address] [address], [facility] [address] ([facility] [place] [address] * HIV 1/2 AG & AB W/RFLX (4TH GEN) (04/06/2022 11:30 AM EST) HIV AG/AB, 4TH GEN NON-REAC TIVE NON-REAC TIVE [facility] Comment: HIV-1 antigen and HIV-1/HIV-2 antibodies were [...] purpose. For additional information please refer to http://education.wiseri/faq/SYF222 (This link is being provided for informational/ educational purposes only.) The performance of this assay has not been clinically validated in patients less than 2 years old. Blood Blood / Unknown 04/06/2022 1 1:30 AM EST 04/06/2022 11:31 AM EST us Travon Reyes MD LAB - BLOOD DRAW Final Result [facility] [address] [address], [facility] [address] ([facility] [place] [address] * THINPREP PAP & HPV MRNA E6/E7 RFLX HPV 16,18/[address]/NG (04/06/2022 11:12 AM EST) CHLAMYDIA TRACHOMATIS RNA, TMA NOT DETECTED NOT DETECTED [facility] NEISSERIA GONORRHOEAE RNA, TMA NOT DETECTED NOT DETECTED [facility] COMMENT [facility] CLINICAL INFORMATION See Note [facility] Comment:Routine exam LMP See Note [facility] Comment:03/12/2022 PREV. PAP See Note [facility] Comment:NONE GIVEN PREV. BX See Note [facility] Comment:NONE GIVEN SOURCE See Note [facility] Comment:Cervix STATEMENT OF ADEQUACY See Note [facility] Comment: Satisfactory for evaluation. Endocervical/transformation zone component present. INTERPRETATION/RESU LT See Note [facility] Comment:Negative for intraep ithelial lesion or malignancy. SURGICAL ORDERLY See Note [facility] Comment: RK, CT(ASCP) CT screening location: [place] [address] COMMENT [facility] HPV MRNA E6/E7 Not Detected Not Detected [facility] Comment: Methodology: Multicultural Manager-Mediated Amplification This assay detects E6/E7 viral messenger RNA (mRNA) from 14 high-risk HPV types (16,18,31,33,35,39,45,51,52,56,58,59,66,68). Cervical sources are required for HPV testing. If a vaginal source from a patient who has had a total hysterectomy with removal of cervix was submitted, please contact the testing laboratory for alternative testing options. For additional information, please refer to http://education.wiseri/faq/RTR206b6 (This link if provided for information/ educational purposes only.) CYTOLOGY Cervix uteri structure / Unknown 04/06/2022 11:12 AM EST 04/07/2022 11:37 AM EST Narrative [facility] - 04/11/2022 10:51 AM EST EXPLANATORY NOTE: [...] test SurePath(TM) specimens have been determined by Shahab P. Tabatabai, Broker. The modifications have not been cleared or approved by the FDA. This assay has been validated pursuant to the CLIA regulations and is used for clinical purposes. For additional information, please refer to https://education.wiseri/faq/NWS887 (This link is being provided for information/ educational purposes only.) Travon Reyes MD LAB - PATHOLOGY AND CYTOLOGY AMB ULATORY Final Result [facility] [address] [facility] [address] [place] [address], [facility] [address] [facility]) [place] [address] * HISTORIC MAMMOGRAM (02/07/2022 3:00 AM EST) 02/07/2022 3:00 AM EST [facility] IMG MAMMO Edited R esult - Final from Last 3 Months or Most Recently Relevant to Health Maintenance Insurance [place] MED[place] [address] ACO Care Teams Court Of Appeals Judge Relationship Specialty Start Date End Date Travon Reyes MD [facility] [place] [address] PCP - General Family Medicine, Physician 02/02/23
--- OUTSIDE RECORDS SUMMARY | 2024-11-25 18:20 | XMS_ITS | Encounter Summary ---
Demographics Address [address] [place] [address] Mobile Phone Home Phone Email Address Preferred Language en Marital Status Single Orthodox Affiliation Unknown Race Other Race Ethnic Group Unknown Author Organization [employer] Address [address] [place] [address] Care Team Providers Care Call Center Dispatcher Name Role Phone Rubina Rivas DO Primary Care Provider [phone]- [phone] Encounter Details Date Type Department Care Team (Late st Contact Info) Description 11/25/2024 Orders Only [facility] [address] [place] [address] Rubina Rivas DO [address] [place], [place] [phone] Social History Tobacco Use Types Packs/Day Years [...] on file documented as of this encounter Procedures Procedure Name Priority Date/Time Associated Diagnosis Comments XR CERVICAL SPINE 3V Routine 11/25/2024 2:36 PM EDT documented in this encounter Results * XR CERVICAL SPINE 3V (11/25/2024 2:36 PM EDT) Anatomical Region Laterality Modality Abdomen Radiographic Savita ging 11/25/2024 2:36 PM EDT Narrative 11/25/2024 3:19 [place] [address] XRay Report Signed Patient: Caterina Thomas MR#: [id number] 2400 : 1990 Acct:[id number] Age/Sex: 34 / F ADM Date: 11/25/24 Loc: HO.[facility] Attending Dr: Rubina Rivas DO Ordering Physician: Rubina Rivas DO Date of Service: 11/25/24 Procedure(s): XR cervical spine 3V Accession Number(s): [id number] cc: Rubina Rivas DO Reason for Exam: PAIN EXAMINATION: XR CERVICAL SPINE CLINICAL INFORMATION: PAIN COMPARISON: None available. TECHNIQUE: AP lateral, atlantoodontoid view and swimmer's projection FINDINGS: Craniocervical junction is intact. No acute cortical disruption or malalignment. No lytic or blastic lesions. Small marginal osteophyte formation C5-6. Upper airway is patent. XR/XR cervical spine 3V IMPRESSION: Mild cervical spondylosis C5-6. Electronically signed by: Monico Platt MD 11/25/2024 03:16 PM EDT RP Dictated By: Monico Jacobs MD Signed By: <Electronically signed by Monico Burgos MD in [facility]> 11/25/24 1516 DD/ 1436 TD/TT: 11/25/24 1508 Bridge Manager: Procedure Note Donotuseinterpreter, Image - 11/25/2024 [place] [address] XRay Report Signed Patient: Caterina Thomas#: [id number] 2400 : 1990Acct:[id number] Age/Sex: 34 / FADM Date: 11/25/24 Loc: HO.[facility] Attending Dr: Rubina Rivas DO Ordering Physician: Rubina Rivas DO Date of Service: 11/25/24 Procedure(s): XR cervical spine 3V Accession Number(s): [id number] cc: Rubina Rivas DO Reason for Exam: PAIN EXAMINATION: XR CERVICAL SPINE CLINICAL INFORMATION: PAIN COMPARISON: None available. TECHNIQUE: AP lateral, atlantoodontoid view and swimmer's projection FINDINGS: Craniocervical junction is intact. No acute cortical disruption or malalignment. No lytic or blastic lesions. Small marginal osteophyte formation C5-6. Upper airway is patent. XR/XR cervical spine 3V IMPRESSION: Mild cervical spondylosis C5-6. Electronically signed by: Monico Platt MD 11/25/2024 03:16 PM EDT RP Dictated By: Monico Jacobs MD Signed By: <Electronically signed by Monico Burgos MDin OV> 11/25/24 1516 DD/ 1436 TD/TT: 11/25/24 1508 Bridge Manager: Rubina Rivas DO IMG XR PROCEDURES Final Resu lt documented in this encounter Visit Diagnoses Not on filedocumented in this encounter Additional Health Concerns Assessment Noted Time PHQ-9 Depression Total Score: 10 025 10:25 AM EDT documented as of this encounter Care Teams Call Center Dispatcher Relationship Specialty Start Date End Date Rubina Rivas DO [address] [place] [address] PCP - General Family Medicine 10/10/24 documented as of this encounter
--- OUTSIDE RECORDS SUMMARY | 2024-11-25 18:20 | XMS_ITS | Clinical Summary ---
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 150 g 1 5 Active meclizine (Antivert) 12.5 MG tablet Take 1 tablet (12.5 mg) by mouth if needed in the morning, at noon, and at bedtime for dizziness. 30 tablet 1 5 11/10/19 25 Active Problems Problem Noted Date Diagnosed Date Anxiety 10/10/2024 BMI 45.0-49.9, adult (CMS/[facility]) 10/10/2024 Encounters Date Type Department Care Team Description 11/25/2024 11:45 AM EDT Office Visit [facility] [address] [place] [address] Rubina Rivas DO Chronic left shoulder pain (Primary Dx) 11/25/2024 Orders Only [facility] [address] [place] [phone] Rubina Rivas DO 11/25/2024 Travel 11/24/[address] [address] Rubina Rivas DO Chart Prep 11/21/2024 Travel 10/16/[address] [address] Rubina Rivas DO Results 10/10/2024 9:30 AM EDT Office Visit [address] [address] Rubina Rivas DO Routine history and physical examination of adult (Primary Dx); Anxiety; BMI 45.0-49.9, adult (CMS/HCC); Dietary counseling; Exercise counseling; Fatty liver; Chest pain, unspecified type; Dizziness 10/10/2024 Travel 10/09/2024 Travel 10/01/2024 Patient Outreach [address] [address] Rubina Rivas DO Pre-visit Planning (SDOH screening negative and tobacco screening negative) 10/01/[address] [address] Rubina Rivas DO Chart Prep 08/26/2024 Population Health Risk Score [facility] () Department [address] [place] [phone] Provider, Population Health Generic from Last 3 [...] Mass Index 45.66 11/25/2024 11:55 AM EDT Plan of Treatment Health Maintenance Due Date Last Done Comments Family Planning (PISQ) 2004 HPV Vaccines (1 - 3-dose series) 2004 Hepatitis A Vaccines (1 of 2 - Risk 2-dose series) 2008 Hepatitis B Vaccines (1 of 3 - 19+ 3-dose series) 2008 Pap Smear 2010 Cervical Cancer Screening 05/07/2019 HPV/Cotest 05/07/2019 COVID-19 Vaccine (2024-2 6 season) 2024 12/31/2020, 12/10/2020 Influenza Vaccine (#1) 2024 12/10/2020 Depression Monitoring 04/09/2025 10/10/2024 , 10/10/2024 SDOH Screening 10/01/2025 10/01/2024 Alcohol/Substance Use Screening 10/10/2025 10/10/2024 Disability Screening 10/10/2025 10/10/2024 Tobacco Screening 11/25/2025 11/25/2024 Lipid Panel 10/10/2029 10/10/2024 DTaP/Tdap/Td Vaccines (2 - T d or Tdap) 11/14/2034 11/14/2024 Zoster Vaccines (1 of 2) 05/07/2039 RSV [...] 2:43 PM EDT Chronic left shoulder pain XR CERVICAL SPINE 3V Routine 11/25/2024 2:36 PM EDT T-SPOT(R).TB Routine 11/10/2024 4:25 PM EDT Routine history and physical examination of adult Anxiety BMI 45.0-49.9, adult ([facility]) ([facility]) Dietary counseling Exercise counseling Fatty liver Chest pain, unspecified type Dizziness CBC WITH AUTO DIFFERENTIAL Routine 10/10/2024 10:25 AM EDT Routine history and physical examination of adult Anxiety BMI 45.0-49.9, adult ([facility]) Dietary counseling Exercise counseling Fatty liver Chest pain, unspecified type Dizziness ALPHA FETOPROTEIN, TUMOR MARKER Routine 10/10/2024 10:25 AM EDT Routine history and physical examination of adult Anxiety BMI 45.0-49.9, adult ([facility]) Dietary counseling Exercise counseling Fatty liver Chest pain, unspecified type Dizziness MEASLES, MUMPS, AND RUBELLA (MMR) AB (IGG) PANEL, IMMUNE STATUS Routine 10/10/2024 10:25 AM EDT Routine history and physical examination of adult Anxiety BMI 45.0-49.9, adult ([facility]) Dietary counseling Exercise counseling Fatty liver Chest pain, unspecified type Dizziness VARICELLA ZOSTER ANTIBODY, IGG Routine 10/10/2024 10:25 AM EDT Routine history and physical examination of adult Anxiety BMI 45.0-49.9, adult ([facility]) Dietary counseling Exercise counseling Fatty [...] examination of adult Anxiety BMI 45.0-49.9, adult ([facility]) Dietary counseling Exercise counseling Fatty liver Chest pain, unspecified type Dizziness HEMOGLOBIN A1C Routine 10/10/2024 10:25 AM EDT Routine history and physical examination of adult Anxiety BMI 45.0-49.9, adult ([facility]) Dietary counseling Exercise counseling Fatty liver Chest pain, unspecified type Dizziness HEPATIC FUNCTION PANEL Routine 10/10/2024 10:25 AM EDT Routine history and physical examination of adult Anxiety BMI 45.0-49.9, adult ([facility]) Dietary counseling Exercise counseling Fatty liver Chest pain, unspecified type Dizziness VITAMIN D,25-OH,TOTAL,IA Routine 10/10/2024 10:25 AM EDT Routine history and physical examination of adult Anxiety BMI 45.0-49.9, adult ([facility]) Dietary counseling Exercise counseling Fatty liver Chest pain, unspecified type Dizziness TSH Routine 10/10/2024 10:25 AM EDT Routine history and physical examination of adult Anxiety BMI 45.0-49.9, adult ([facility]) Dietary counseling Exercise counseling Fatty liver Chest pain, unspecified type Dizziness LIPID PANEL, STANDARD Routine 10/10/2024 10:25 AM EDT Routine history and physical examination of adult Anxiety BMI 45.0-49.9, adult ([facility]) Dietary counseling Exercise counseling Fatty liver Chest pain, unspecified type Dizziness T4, FREE Routine 10/10/2024 10:25 AM EDT Routine history and physical examination of adult Anxiety BMI 45.0-49.9, adult ([facility]) Dietary counseling Exercise counseling Fatty liver Chest pain, unspecified type Dizziness from Last 3 Months Results * XR Shoulder 2+ Views Left (11/25/2024 2:43 PM EDT) Anatomical Region Laterality Modality Upper Extremities, Shoulder Left Radi ographic Imaging 11/25/2024 2:43 PM EDT Narrative 11/25/2024 3:19 PM EDT [address] [address] XRay Report Signed Patient: Caterina Thomas MR#: [id number] : 1990 Acct:[id number] Age/Sex: 34 / F ADM Date: 11/25/24 Loc: ANUPAM Attending Dr: Rubina Rivas DO Ordering Physician: Rubina Rivas DO Date of Service: 11/25/24 Procedure(s): XR shoulder LT min 2V Accession Number(s): [id number] cc: Rubina Rivas DO Reason for Exam: [...] 11/25/24 1516 DD/ 1443 TD/TT: 11/25/24 1508 Measurement Superintendent: Procedure Note Donotuseinterpreter, Image - 11/25/[address] [address] XRay Report Signed Patient: Caterina ThomasMR#: [id number] : 1990Acct:[id number] Age/Sex: 34 / FADM Date: 11/25/24 Loc: ANABELMigdalia Attending Dr: Rubina Rivas DO Ordering Physician: Rubina Rivas DO Date of Service: 11/25/24 Procedure(s): XR shoulder LT min 2V Accession Number(s): [id number] cc: Rubina Rivas DO Reason for Exam: [...] 11/25/24 1516 DD/ 1443 TD/TT: 11/25/24 1508 Measurement Superintendent: Rubina Rivas DO IMG XR PROCEDURES Final Resu lt * XR CERVICAL SPINE 3V (11/25/2024 2:36 PM EDT) Anatomical Region Laterality Modality Abdomen Radiographic Savita ging 11/25/2024 2:36 PM EDT Narrative 11/25/2024 3:19 PM EDT [address] [address] XRay Report Signed Patient: Caterina Thomas MR#: [id number] : 1990 Acct:[id number] Age/Sex: 34 / F ADM Date: 11/25/24 Loc: HO.HHCX Attending Dr: Rubina Rivas DO Ordering Physician: Rubina Rivas DO Date of Service: 11/25/24 Procedure(s): XR cervical spine 3V Accession Number(s): [id number] cc: Rubina Rivas DO Reason for Exam: [...] 11/25/24 1516 DD/ 1436 TD/TT: 11/25/24 1508 Measurement Superintendent: Procedure Note Donotuseinterpreter, Image - 11/25/2024 [place] [address] XRay Report Signed Patient: Caterina ThomasMR#: [id number] 2400 : 1990Acct:[id number] Age/Sex: 34 / FADM Date: 11/25/24 Loc: HO.HHCX Attending Dr: Rubina Rivas DO Ordering Physician: Rbuina Rivas DO Date of Service: 11/25/24 Procedure(s): XR cervical spine 3V Accession Number(s): [id number] cc: Rubina Rivas DO Reason for Exam: [...] 11/25/24 1516 DD/ 1436 TD/TT: 11/25/24 1508 Measurement Superintendent: us Rubina Rivas DO IMG XR PROCEDURES Final Resu lt * T-SPOT??.TB (11/10/2024 4:25 PM EDT) T Spot TB Negative Negative [facility] Comment:A negative test resu lt does not exclude the possibilityof exposure to or infection with Mycobacteriumtuberculosis (M. tuberculosis). Patients with recentexposure to TB infected individuals exhibiting anegative T-SPOT.TB result should be considered forretesting within 6 weeks or if other relevant clinicalsymptoms indicate. Results from T-SPOT.TB testing mustbe used in conjunction with each individual'sepidemiological history, current medical status,and results of other diagnostic evaluations.The T-SPOT.TB test is qualitative and results arereported as positive, borderline, or negative, giventhat the test controls perform as expected. In linewith the Centers for Disease Control and Prevention's2010 recommendation to report quantitative measurementsalongside the qualitative result, the laboratoryprovides spot counts for informational purposes only.The T-SPOT.TB test should not be interpreted as aquantitative test. TS PANEL A 0 [facility] TS PANEL B 0 [facility] Negative Control Passed [facility] Positive Control Passed [facility] Comment:For additional infor dali, please refer tohttp://education.[employer]/faq/IME448(This link is being provided for informational/educational purposes only.)THIS TEST WAS PERFORMED AT:[employer] [facility] [employer]/[id number] [place] [phone] GILBERT MD,PHD 11/10/2024 4:25 PM EDT 11/10/2024 4:25 PM EDT us Rubina Rivas DO LAB BLOOD ORDERABLES Final R esult [facility] [address] [place] [phone] * Vitamin D, 25-Hydroxy, Total, Immunoassay (10/10/2024 10:25 AM EDT) Vitamin D 25-OH Total 33.6 >30 ng/mL [facility] Comment: Health Based Reference Values*< 20 ng/mL Kvwrwrijo75-46 ng/mL Insufficient> 30 ng/mL Sufficient*Maddi REINA. N [...] DO LAB BLOOD ORDERABLES Final R esult [facility] [address] [place] [phone] * (ABNORMAL) Measles, Mumps, and Rubella (MMR) Antibodies??(IgG) Panel, Immune Status (10/10/2024 10:25 AM EDT) Mumps Virus IgG Antibody <9.00(A) AU/mL [facility] Comment:AU/mL Interpretation ------- <9.00 Not consistent with immunity9.00-10.99 Equivocal>10.99 Consistent with immunityThe presence of mumps IgG antibody suggests immunizationor past or current infection with mumps virus. Rubella IgG Antibody 4.61 Index [facility] Comment:Index Interpretation ----- <0.90 Not consistent with immunity 0.90-0.99 Equivocal > or = 1.00 Consistent with immunityThe presence of rubella IgG antibody suggestsimmunization or past or current infection withrubella virus.THIS TEST WAS PERFORMED AT:[employer] [place] [id number] POPE MD Rubeola IgG (Measles) >300.00 AU/mL [facility] Comment:AU/mL Interpretation ----- <13.50 Not consistent with rywzsyvr55.50-16.49 Equivocal>16.49 Consistent with immunityThe presence of measles IgG suggests immunization orpast or current infection with measles virus.For additional information, please refer tohttp://education.[employer]/faq/FIA274(This link is being provided for informational/educational purposes only.) Blood Venous blood specimen / Unknown 10/10/2024 10:25 AM EDT 10/10/2024 11:13 AM EDT us Rubina Rivas DO LAB BLOOD ORDERABLES Final R esult [facility] [address] [place] [phone] * (ABNORMAL) CBC auto differential (10/10/2024 10:25 AM EDT) White Blood Count 7.9 4.8 - 10.8 X10*3/uL [facility] Red Blood Count 4.63 4.20 - 5.50 X10*6/uL [facility] Hemoglobin 14.1 12.0 - 16.0 g/dl [facility] Hematocrit 40.0 37.0 - 47.0 % [facility] Mean Corpuscular Volume 86.4 80.0 - 98.0 fL [facility] Mean Corpuscular Hemoglobin 30.5 27.0 - 33.0 pg [facility] Mean Corpuscular HGB Conc 35.3(H) 31.0 - 35.0 g/dl [facility] Red Cell Distribution Width 12.6 11.0 - 16.0 % [facility] Platelet Count 366 160 - 400 X10*3/uL [facility] Mean Platelet Volume 10.7 9.4 - 12.3 fL [facility] Neutrophils Percent Auto 63.8 45 - 73 % [facility] Imm Gran Pct Auto 0.4 0.0 - 0.4 % [facility] Lymphocytes Percent Auto 27.6 20 - 40 % [facility] Monocytes Percent Auto 4.9 2 - 11 % [facility] Eosinophils Percent Auto 2.5 0 - 4 % [facility] Basophils Percent Auto 0.8 0 - 2 % [facility] NRBC Pct Auto 0.0 0.0 - 0.2 /100WBC [facility] Neutrophils Absolute Auto 5.0 2.0 - 8.3 x10*3/uL [facility] Imm Gran Abs Auto 0.03 0.00 - 0.03 X10*3/uL [facility] Lymphocytes Absolute Auto 2.2 1.2 - 4.9 X10*3/uL [facility] Monocytes Absolute Auto 0.4 0.1 - 1.2 X10*3/uL [facility] Eosinophils Absolute Auto 0.2 0.0 - 0.4 X10*3/uL [facility] Basophils Absolute Auto 0.1 0.0 - 0.2 X10*3/uL [facility] NRBC Abs Auto 0.000 0.0 - 0.012 X10*3/uL [facility] Blood Venous blood specimen / Unknown 10/10/2024 10:25 AM EDT 10/10/2024 11:13 AM EDT Rubina Rivas DO LAB BLOOD ORDERABLES Final R esult Performing Organization Address [facility] Co de Phone Number [facility] [address] [place] [phone] * Hepatitis C Antibody with Reflex to HCV, RNA, Quantitative, Real-Time PCR (10/10/2024 10:25 AM EDT) Pathologist [facility] Hepatitis C Antibody Nonreactive Nonreactive [facility] Comment:Antibodies to HCV no t detected; does not exclude early acuteHCV infection. Blood Venous blood specimen / Unknown 10/10/2024 10:25 AM EDT 10/10/2024 11:13 AM EDT Rubina Rivas DO LAB BLOOD ORDERABLES Final R esult Performing Organization Address [facility] Co de Phone Number [facility] [address] [place] [phone] * Hepatitis A Antibody, Total (10/10/2024 10:25 AM EDT) [facility] Hepatitis A Antibody IgG Nonreactive Nonreactive [facility] Blood Venous blood specimen / Unknown 10/10/2024 10:25 AM EDT 10/10/2024 11:13 AM EDT Rubina Rivas DO LAB BLOOD ORDERABLES Final R esult Performing Organization Address [facility] Co de Phone Number [facility] [address] [place] [phone] * Alpha-Fetoprotein, Tumor Marker (10/10/2024 10:25 AM EDT) [facility] Alpha Fetoprotein 2.6 ng/mL [facility] Comment:Reference Range: <6. 1The use of AFP as a tumor marker in females is not recommended.This test was performed using the Bryant Coulterchemiluminescent method. Values obtained fromdifferent assay methods cannot be usedinterchangeably. AFP levels, regardless ofvalue, should not be interpreted as absoluteevidence of the presence or absence of disease.THIS TEST WAS PERFORMED AT:[employer] [place] [phone] POPE MD Blood Venous blood specimen / Unknown 10/10/2024 10:25 AM EDT 10/10/2024 11:13 AM EDT Rubina Rivas DO LAB BLOOD ORDERABLES Final R esult Performing Organization Address [facility]/ZIP Co de Phone Number [facility] [address] [place] [phone] * Hepatitis B surface antigen, EIA (10/10/2024 10:25 AM EDT) Hepatitis B Surface Ag Negative Negative [facility] Blood Venous blood specimen / Unknown 10/10/2024 10:25 AM EDT 10/10/2024 11:13 AM EDT Rubina Rivas DO LAB BLOOD ORDERABLES Final R esult Performing Organization Address [facility] Co de Phone Number [facility] [address] [place] [phone] * Hepatitis B Core Antibody, Total (10/10/2024 10:25 AM EDT) Hepatitis B Core Antibody Nonreactive Nonreactive [facility] Blood Venous blood specimen / Unknown 10/10/2024 10:25 AM EDT 10/10/2024 11:13 AM EDT Rubina Rivas DO LAB BLOOD ORDERABLES Final R esult Performing Organization Address [facility] Co de Phone Number [facility] [address] [place] [phone] * RPR (Monitor) with Reflex to??Titer (10/10/2024 10:25 AM EDT) RPR (Monitor) w/Refl Titer NON-REACTI VE NON-REACT CHRISS [facility] Comment:THIS TEST WAS PERFOR MED AT:[employer] [place] [id number] POPE MD Rapid Plasma Reagin Ab Titer TNP [facility] Blood Venous blood specimen / Unknown 10/10/2024 10:25 AM EDT 10/10/2024 11:13 AM EDT us Rubina Rivas DO LAB BLOOD ORDERABLES Final R esult [facility] [address] [place] [phone] * HIV-1/2 Antigen and Antibodies, Fourth Generation, with Reflexes (10/10/2024 10:25 AM EDT) HIV AB/AG Nonreactive Nonreactive [facility] Comment:HIV-1 p24 Ag and/or HIV-1/HIV-2 Ab not detected.A test result that is nonreactive does not exclude thepossibility of exposure to or infection with HIV-1 and/orHIV-2. Nonreactive results in this assay for individualswith prior exposure to HIV-1 and/or HIV-2 may be due toantigen and antibody levels that are below the limit ofdetection of this assay.The [employer] HIV Ag/Ab Combo assay result andsupplemental assay results should be interpreted inconjunction with the patient's clinical presentation,history and other laboratory results. If the results areinconsistent with clinical evidence, additional testing issuggested to confirm the result. Blood Venous blood specimen / Unknown 10/10/2024 10:25 AM EDT 10/10/2024 11:13 AM EDT us Rubina Rivas DO LAB BLOOD ORDERABLES Final R esult Performing Organization Address [facility] Co de Phone Number [facility] [address] [place] [phone] * Hepatitis B Surface Antibody, Qualitative (10/10/2024 10:25 AM EDT) Pathologist [facility] ~Hepatitis B Surface Antibody REACTIVE Nonreactive [facility] Comment:REACTIVE: > 11.99 mI U/mL Blood Venous blood specimen / Unknown 10/10/2024 10:25 AM EDT 10/10/2024 11:13 AM EDT Rubina Rob DO LAB BLOOD ORDERABLES Final R esult Performing Organization Address [facility] Co de Phone Number [facility] [address] [place] [phone] * Varicella zoster antibody, IgG (10/10/2024 10:25 AM EDT) [facility] Varicella IgG Antibody 9.02 S/CO [facility] Comment:Signal to Cut-off S/ CO [...] Antibody Immunity Screen, ACIF.THIS TEST WAS PERFORMED AT:[employer] [place] [phone] POPE MD Blood Venous blood specimen / Unknown 10/10/2024 10:25 AM EDT 10/10/2024 11:13 AM EDT us Rubina Rivas DO LAB BLOOD ORDERABLES Final R esult Performing Organization Address City/[facility]/ZIP Co de Phone Number [facility] [address] [place] [phone] * TSH (10/10/2024 10:25 AM EDT) Thyroid Stimulating Hormone 0.49 0.32 - 4.0 uIU/mL [facility] Comment:TSH 3rd Generation ( [facility]) Blood Venous blood specimen / Unknown 10/10/2024 10:25 AM EDT 10/10/2024 11:13 AM EDT Rubina Rivas DO LAB BLOOD ORDERABLES Final R esult Performing Organization Address [facility] Co de Phone Number [facility] [address] [place] [phone] * T4, Free (10/10/2024 10:25 AM EDT) Free T4 (Free Thyroxine) 1.09 0.71 - 1.85 ng/dL [facility] Blood Venous blood specimen / Unknown 10/10/2024 10:25 AM EDT 10/10/2024 11:13 AM EDT Rubina Rivas DO LAB BLOOD ORDERABLES Final R esult Performing Organization Address City/[facility] Co de Phone Number [facility] [address] [place] [phone] * Hemoglobin A1c (10/10/2024 10:25 AM EDT) Hemoglobin A1c 5.1 <6.0 % [facility] Comment:Hemoglobin A1C Refer ence Range Adults: 4.8 - 6.0 % Non diabetic: < 6.0 % Goal: < 7.0 %Additional Action Suggested: > 8.0 %Note: Hemoglobin A1c results are invalid for patients with abnormal amounts of HbF. Blood transfusions may impact the HbA1c concentration in the patient sample. Estimated Average Glucose 100 mg/dL [facility] Comment:eAG = Estimated ave rage glucose which is %A1C expressed asaverage glucose, using the formula of the [id number] Glucose study (ADAG), Diabetes Care, Vol.31,#8,Sep. 2007 Blood Venous blood specimen / Unknown 10/10/2024 10:25 AM EDT 10/10/2024 11:13 AM EDT Rubina Rob LAB BLOOD ORDERABLES Final R esult Performing Organization Address City/[facility]/ZIP Co de Phone Number [facility] [address] [place] [phone] * (ABNORMAL) Hepatic Function Panel (10/10/2024 10:25 AM EDT) Bilirubin, Total 0.4 0.0 - 1.0 mg/dL [facility] Bilirubin, Direct 0.1 0.0 - 0.5 mg/dL [facility] Aspartate Amino Transferase 31 5 - 31 U/L [facility] Alanine Aminotransferase 32(H) 0 - 31 U/L [facility] Total Protein 7.7 6.5 - 8.0 g/dL [facility] Albumin Level 4.6 3.5 - 5.0 g/dL [facility] Alkaline Phosphatase 91 39 - 117 U/L [facility] Blood Venous blood specimen / Unknown 10/10/2024 10:25 AM EDT 10/10/2024 11:13 AM EDT Rubina Rob DO LAB BLOOD ORDERABLES Final R esult Performing Organization Address [facility]/ZIP Co de Phone Number [facility] [address] [place] [phone] * (ABNORMAL) Lipid Panel, Standard (10/10/2024 10:25 AM EDT) Triglycerides 140 <150 mg/dL [facility] Comment:Desirable Triglyceri de: less than 150 mg/dLBorderline High Triglyceride 150-199 mg/dLHigh Triglyceride: 200-499 mg/dLVery High Triglyceride: greater than or equal to 5OO mg/dL Cholesterol 200(H) <200 mg/dL [facility] Comment:Desirable Cholestero l: less than 200 mg/dLBorderline High Cholesterol: 200-239 mg/dLHigh Cholesterol: greater than 239 mg/dL LDL Cholesterol Calculated 131(H) <100 mg/dL [facility] Comment:Desirable LDL: less than 100 mg/dLNear Optimal/Above Optimal LDL: 110- 129 mg/dLBorderline High LDL: 130-159 mg/dLHigh LDL: 160-189 mg/dLVery High LDL: greater than or equal to 190 mg/dL HDL Cholesterol 41 >40 mg/dL [facility] Comment:Desirable HDL: great er than 40 mg/dL Note: This HDL assay may give artificially low results in patients with liver disease. Blood Venous blood specimen / Unknown 10/10/2024 10:25 AM EDT 10/10/2024 11:13 AM EDT us Rubina Rivas DO LAB BLOOD ORDERABLES Final R esult [facility] [address] [place] [phone] * (ABNORMAL) Basic Metabolic Panel (10/10/2024 10:25 AM EDT) Sodium 139 135 - 145 mmol/L [facility] Potassium 4.1 3.3 - 5.1 mmol/L [facility] Chloride 110(H) 96 - 108 mmol/L [facility] Carbon Dioxide 23 22 - 29 mmol/L [facility] Anion Gap 10(L) 12 - 20 [facility] Urea Nitrogen (BUN) 12 9 - 16 mg/dL [facility] Creatinine, Serum 0.71 0.5 - 1.4 mg/dL [facility] Estimated Glomerular Filt Rate >60 [facility] Comment:Chronic Kidney Disea se: Estimated GFR < 60 mL/min/1.25e9Czdrob Kidney Disease: Estimated GFR < 15 mL/min/1.73m2 Glucose 98 60 - 115 mg/dL [facility] Calcium 9.0 8.4 - 10.2 mg/dL [facility] Blood Venous blood specimen / Unknown 10/10/2024 10:25 AM EDT 10/10/2024 11:13 AM EDT us Rubina Rivas DO LAB BLOOD ORDERABLES Final R esult [facility] [address] [place] [address] [phone] from Last 3 Months [facility] Care Teams Horseback Riding Instructor Relationship Specialty Start Date End Date Rubina Rivas DO [address] [place] [phone] PCP - General Family Medicine 10/10/24
--- OUTSIDE RECORDS SUMMARY | 2024-11-25 18:20 | XMS_ITS | Encounter Summary ---
Demographics Address [address] [place] [address] Mobile Phone Home Phone Email Address m Preferred Language en Marital Status Single Zoroastrianism Affiliation Unknown Race Other Race Ethnic Group Unknown Author Organization [employer] Address [address] [place] [address] Care Team Providers Care Operations Support Analyst Name Role Phone Rubina Rivas DO Primary Care Provider [phone] Reason for Visit * Reason Onset Date Comments Chart Prep 11/24/2024 Encounter Details Date Type Department Care Team ([facility] st Contact Info) Description 11/24/2024 Telephone [facility] [address] [place], [place] [phone] Rubina Rivas DO [address] [place], [place] [phone] Chart Prep Social History Tobacco Use Types Packs/Day Years [...] PM EST documented as of this encounter Miscellaneous Notes * Telephone Encounter - Karen Levy [place] - 11/24/2024 2:30 PM EDT Chart Prep Labs: done Images: not done Referrals: appointment pending Vaccines due: Covid, Flu, Hep B, Hep A, and HPV Screenings: pap smear, LMP, and PISQ Overdue care gaps: PHQ-9 and ZAHRAA-7 documented in this encounter Plan of Treatment Not on file documented as of this encounter Visit Diagnoses Not on filedocumented in this encounter Additional Health Concerns Assessment Noted Time PHQ-9 Depression Total Score: 10 025 10:25 AM EDT documented as of this encounter Care Teams Operations Support Analyst Relationship Specialty Start Date End Date Rubina Rivas DO [address] [place] [phone] PCP - General Family Medicine 10/10/24 documented as of this encounter
--- OUTSIDE RECORDS SUMMARY | 2024-11-25 18:20 | XMS_ITS | Encounter Summary ---
Demographics Address [address] [place] [address] Mobile Phone Home Phone Email Address m Preferred Language en Marital Status Single Yazdanism Affiliation Unknown Race Other Race Ethnic Group Unknown Author Organization [employer] Address [address] [place] [address] Care Team Providers Care Oncology Patient Navigator Name Role Phone ChingRubina brown Primary Care Provider Encounter Details Date Type Department Care Team (Latest Contact Info) Description 11/21/2024 Travel Social History Tobacco Use Types Packs/Day [...] documented as of this encounter Care Teams Oncology Patient Navigator Relationship Specialty Start Date End Date Rubina Rivas DO [address] [place] [phone] PCP - General Family Medicine 10/10/24 documented as of this encounter
--- OUTSIDE RECORDS SUMMARY | 2024-11-25 18:20 | XMS_ITS | Encounter Summary ---
Demographics Address [address] [place] [address] Mobile Phone Home Phone Email Address Preferred Language en Marital Status Single Jewish Affiliation Unknown Race Other Race Ethnic Group Unknown Author Organization [employer] Address [address] [place] [address] Care Team Providers Care Biazzi Nitrator Operator Name Role Phone ChingRubina brown Primary Care Provider Encounter Details Date Type Department Care Team (Latest Contact Info) Description 11/25/2024 Travel Social History Tobacco Use Types Packs/Day [...] documented as of this encounter Care Teams Biazzi Nitrator Operator Relationship Specialty Start Date End Date Rubina Rivas DO [address] [place] [phone] PCP - General Family Medicine 10/10/24 documented as of this encounter
--- OUTSIDE RECORDS SUMMARY | 2024-11-25 18:20 | XMS_ITS | Clinical Summary ---
Demographics Address [address] [place] [address] Home Phone Work Phone Mobile Phone Email Address M Preferred Language en Marital Status Single Islam Affiliation Unknown Race Unknown Ethnic Group or Author Organization [facility] [facility] it Address [address] [place] [address] Support Name Relationship Address Phone Shahriar Mcintyre Unrelated friend [address] [place] [address] Demar Hutchins Daughter [address] [place] [address] Care Team Providers Care Benefits Coordinator Name Role Phone Laxmi Helms MD Primary [...] RESULTING AGENCY - 07/17/2018 4:10 PM EDT [id number] THINPREP PAP, IMAGED: NEGATIVE FOR SQUAMOUS INTRAEPITHELIAL [...] REACTIVE CELLULAR CHANGES, LMP 07/02/2018 Basilia Cole [facility] CYTOLOGY ORDERABLES Final Result HISTORICAL TESTING LAB RESULTING AGENCY from Last 3 Months or Most Recently Relevant to Health Maintenance Care Teams Benefits Coordinator Relationship Specialty Start Date End Date Laxmi Helms MD PCP - General Pediatrics 03/17/16
== END 2024-11-25 13:48 | disposition home or self-care (01) ==
LOC: HO.HHCX 13:47
PROVIDERS: PCP Family Medicine; Visit Provider Family Medicine
DX: M25.512 Pain in left shoulder (principal); G89.29 Other chronic pain
CPT/HCPCS: 72040; 73030

== ENCOUNTER → 2024-11-25 13:52 | Outpatient (BNV) | payer MEDICAID, SELFPAY | PROVIDERS: PCP Family Medicine; Visit Provider Radiology Diagnostic Radiology | DX: M47.812 Spondylosis without myelopathy or radiculopathy, cervical region (principal); M25.512 Pain in left shoulder; M79.602 Pain in left arm | CPT/HCPCS: 72040; 73030 ==

== ENCOUNTER 2025-01-22 14:10 | Outpatient (AMB) | payer MEDICAID, SELFPAY ==
[2025-01-22 15:14] VITALS: BP 130/70; PULSE 86; BMI 47.4
--- NOTE | 2025-01-22 15:14 | MHC.OFFVIS ---
Vital Signs 01/22/25 15:14 Height 5 ft 4 in Weight 276 lb 0.3 oz BMI 47.4 BP 130/70 Blood Pressure Location Lt brachial Position Sitting Pulse 86 Pulse Source Monitor Intake Visit Reasons: PATIENT RESOURCE COORDINATOR/Rob/MICHAEL Intake Note: moises Senior Marketing Coordinator Required: No Accompanied by: Self / Same As Patient Allergies loratadine (From Claritin-D) Allergy (Verified 01/14/22 20:44) Hives pseudoephedrine (From Claritin-D) Allergy (Verified 01/14/22 20:44) Hives Medication List - Last Reconciled 01/22/25 by KEVIN Rick No Known Home Meds HPI HPI PATIENT RESOURCE COORDINATOR/Osito: Details: The patient is a 34 year old female presenting for a cardiology consultation for chest discomfort. She reports the chest discomfort is located above the left breast and radiates into the underarm. This symptom occurred continuously for about seven months during a period of increased stress and anxiety, but has been resolved for the past month. She also reports heart palpitations, described as a strong beat or boom, which last for seconds. These palpitations also occurred during the same high-stress period, once waking her from sleep, and have lessened more recently. The palpitations are not associated with lightheadedness or feeling faint. Past medical history is significant for hyperlipidemia and anxiety, which was diagnosed 4-5 years ago after an anxiety attack. 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 She had two recent head MRIs for dizziness which were normal, and she reports no history of fainting. Her family history is notable for a maternal grandmother with hypertension and cardiomegaly. Her parents and siblings are in good health. Regarding social history, she has quit smoking and drinks alcohol only socially. 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 [facility] Family History Maternal Grandmother Accelerated hypertension Social History Alcohol intake: current Alcohol intake frequency: holidays/special occasions only Substance Use Type: Marijuana Review of Systems Const All systems reviewed & are unremarkable except as noted in HPI and below Denies chills, Denies fatigue, Denies fever(s), Denies frequent falls, Denies weakness, Denies weight gain and Denies weight loss ENT Denies dizziness Card Details: pain Left quadrant of chest to axilla region for 7 months - none in last few weeks. Brief rapid heart palpitations Denies chest pain, Reports chest pain at rest, Denies chest pain with activity, Denies leg edema, Denies lightheadedness, Denies palpitations, Denies dyspnea, Denies dyspnea on exertion and Denies orthopnea Resp Denies cough, Denies dyspnea and Denies dyspnea on exertion GI Denies bloating and Denies change in bowel habits Musc Denies muscle weakness, Denies numbness and Denies tingling Neuro Denies dizziness, Denies frequent falls, Denies numbness, Denies tingling and Denies weakness Endo Denies fatigue and Denies palpitations Physical Exam Vital Signs: Last Vital Signs Pulse 86 01/22/25 15:14 BP 130/70 01/22/25 15:14 BMI result Body Mass Index 47.4 Const General: cooperative, healthy appearing, comfortable and no acute distress Orientation/consciousness: patient oriented x3 Neck Neck: Yes normal visual inspection Resp Effort & Inspection: normal respiratory effort Auscultation: clear to auscultation bilaterally, no rales, no rhonchi and no wheezes Cardio Rate: regular rate Rhythm: regular rhythm Heart sounds: S1 normal heart sound present, S2 normal heart sound present, no gallops, no murmurs and no rubs Neuro General: patient oriented x3 Extrem General: Yes normal to inspection and No no pedal edema Psych Appearance: grossly normal Mental Status: mental status grossly normal Speech and movement: Normal speech and movement present Office Procedures EKG Details: Today, read by me, normal sinus rhythm, normal VA, QRS and QTC intervals, rate 86. [id number], Complete Assessment & Plan Assessment & Plan (1) Atypical chest pain: Code(s): R07.89 - Other chest pain Category: Medical Plan: Reports of atypical left-sided chest discomfort that was present for 7 months continually, and has not been present for the last month. She does report a benign left breast finding and is scheduled for a mammogram next week. Currently asymptomatic. EKG today sinus rhythm, rate 86. Cardiac risk factors include morbid obesity, your smoking. Informed her that her symptom does not sound like cardiac chest pain. Will be checking echocardiogram to ensure EF and wall motion are good. If these are abnormal then an exercise stress test will be ordered. Signs and symptoms of true angina reviewed with her. Cardiology follow-up 2 months, sooner if needed. (2) Heart palpitations: Code(s): R00.2 - Palpitations Category: Medical Plan: Report of strong brief heart palpitations which are likely extrasystoles, specifically PVCs. Will check Holter monitor. Offered reassurance. Reviewed reduction in caffeinated beverages, maintain good hydration. Continue activity as tolerated. Plan I explained to the patient that her chest pain symptoms, particularly the continuous nature for seven months, are not characteristic of cardiac pain. I also educated her that chest pain can arise from many non-cardiac sources, such as muscle or joint issues. I discussed her palpitations, noting her description sounds like PVCs, which are often benign but warrant quantification. I recommended two tests: an echocardiogram to get a baseline look at her heart structure and function, and a 2-day Holter monitor patch to assess her heart rhythm. I informed her that centralized scheduling will contact her to set up these tests and that she will be called with the results. I also scheduled a follow-up visit in about two months to review the findings. I advised that if these tests are normal, routine cardiology follow-up may not be necessary. Orders: Orders ECG holter monitor 48 hour Today R00.2 - Palpitations, R07.89 - Other chest pain CA echo transthoracic complete Today R00.2 - Palpitations, R07.89 - Other chest pain Medications: Discontinued lorazepam (Ativan) patient may ask for partial fill Discontinued Reason: Patient no longer taking 0.5 mg PO TID PRN 10 tabs 0RF anxiety Patient Instructions: - You will undergo an echocardiogram (an ultrasound of your heart) and wear a Holter monitor patch for a couple of days to record your heart's rhythm. - Our central scheduling department will call you to schedule these tests. - You may shower and continue your normal activities while wearing the heart monitor patch. - Someone will call you with the results once they are available. - A follow-up appointment has been made for you in our office in about two months. - Please proceed with your scheduled mammogram on January 30. - Continue to avoid smoking. Patient was informed and verbally consented to the use of an ambient scribe for clinic note documentation during this visit. Visit time spent on chart review, interview, assessment, orders, documentation. Coding Level of Care Code New Pt Level 4 (47228) Add On Problem Visit Only Diagnoses Atypical chest pain R07.89 Heart palpitations R00.2 CPT Codes EKG - CPT: 73146-[id number], Complete ([id number]) Time Spent (min) 28
--- OUTSIDE RECORDS SUMMARY | 2025-01-22 18:24 | XMS_ITS | Clinical Summary ---
Author Organization [employer] Address [address] [place] [address] Care Team Providers Care Nursing Department Chairperson Name Role Phone Rubina Rivas DO Primary [...] for muscle spasms. 40 tablet 1 5 Active Diclofenac Sodium 1 % gel Apply 2 g topically if needed in the morning, at noon, in the evening, and at bedtime (pain). 150 g 1 5 Active cetirizine (ZyrTEC) 10 MG tablet Take 1 tablet (10 mg) by mouth Once per day. 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 [place] [address] Rubina Rivas DO MR Brain w/o Contrast 11/25/2024 11:45 AM EDT Office Visit [facility] [place] [address] Rubina Rivas DO Chronic left shoulder pain (Primary Dx); Breast pain, left 11/25/2024 Orders Only [facility] [address] [facility] [place] [address] Rubina Rivas DO 11/25/2024 Travel 11/24/2024 Telephone [facility] [address] Rubina Rivas DO Chart Prep 11/21/2024 Travel from Last 3 Months Immunizations Immunization Administration [...] 75+ series) 2064 HIV Screening Completed 10/10/2024, 04/06/2022 Hepatitis C Screening Completed 10/10/2024 HIB [...] SPINE 3V Routine 11/25/2024 2:36 PM EDT MR BRAIN WO CONTRAST Routine 11/24/2024 Dizziness T-SPOT(R).TB Routine 11/10/2024 4:25 PM EDT Routine history and physical examination of adult Anxiety BMI 45.0-49.9, adult (CMS/HCC) (HCC) Dietary counseling Exercise counseling Fatty liver Chest [...] unspecified type Dizziness from Last 3 Months or Most Recently Relevant to Health Maintenance Results * XR Shoulder 2+ Views Left (11/25/2024 2:43 PM EDT) Anatomical Region Laterality Modality Upper Extremities, Shoulder Left Radi ographic Imaging 11/25/2024 2:43 PM EDT Narrative 11/25/2024 3:19 PM EDT [address] [address] XRay Report Signed Patient: Caterina Thomas MR#: [id number] 2400 : 1990 Acct:[id number] Age/Sex: 34 / F ADM Date: 11/25/24 Loc: TJ.HHCX Attending Dr: Rubina Rivas DO Ordering Physician: Rubina Rivas DO Date of Service: 11/25/24 Procedure(s): XR shoulder LT min 2V Accession Number(s): [id number] cc: Rubina Rivas DO Reason for Exam: [...] 11/25/24 1516 DD/ 1443 TD/TT: 11/25/24 1508 Bowling Alley Mechanic: Procedure Note Donotuseinterpreter, Image - 11/25/[address] [address] XRay Report Signed Patient: Caterina ThomasMR#: [id number] 2400 : 1990Acct:[id number] Age/Sex: 34 / FADM Date: 11/25/24 Loc: HO.HHCX Attending Dr: Rubina Rivas DO Ordering Physician: Rubina Rivas DO Date of Service: 11/25/24 Procedure(s): XR shoulder LT min 2V Accession Number(s): [id number] cc: Rubina Rivas DO Reason for Exam: [...] 11/25/24 1516 DD/ 1443 TD/TT: 11/25/24 1508 Bowling Alley Mechanic: us Rubina Rivas DO IMG XR PROCEDURES Final Resu lt * XR CERVICAL SPINE 3V (11/25/2024 2:36 PM EDT) Anatomical Region Laterality Modality Abdomen Radiographic Savita ging 11/25/2024 2:36 PM EDT Narrative 11/25/2024 3:19 PM EDT [address] [address] XRay Report Signed Patient: Caterina Thomas MR#: [id number] 2400 : 1990 Acct:[id number] Age/Sex: 34 / F ADM Date: 11/25/24 Loc: .HHCX Attending Dr: Rubina Rivas DO Ordering Physician: Rubina Rivas DO Date of Service: 11/25/24 Procedure(s): XR cervical spine 3V Accession Number(s): [id number] cc: Rubina Rivas DO Reason for Exam: [...] 11/25/24 1516 DD/ 1436 TD/TT: 11/25/24 1508 Bowling Alley Mechanic: Procedure Note Donotuseinterpreter, Image - 11/25/[address] [address] XRay Report Signed Patient: Caterina ThomasMR#: [id number] 2400 : 1990Acct:[id number] Age/Sex: 34 / FADM Date: 11/25/24 Loc: HO.HHCX Attending Dr: Rubina Rivas DO Ordering Physician: Rubina Rivas DO Date of Service: 11/25/24 Procedure(s): XR cervical spine 3V Accession Number(s): [id number] cc: Rubina Rivas DO Reason for Exam: [...] Monico Platt MD 11/25/2024 03:16 PM EDT Dictated By: Monico Jacobs MD Signed By: <Electronically signed by Monico Burgos MDin OV> 11/25/24 1516 DD/ 1436 TD/TT: 11/25/24 1508 Bowling Alley Mechanic: us Rubina Rivas DO IMG XR PROCEDURES Final Resu lt * MR Brain w/o Contrast (11/24/2024) Anatomical Region Laterality Modality Brain Magnetic Resonan ce Rubina iRvas DO IMG MRI PROCEDURES Final Res ult * T-SPOT??.TB (11/10/2024 4:25 PM EDT) Pathologist [facility] T Spot TB Negative Negative [facility] Comment:A negative test resu lt [...] as aquantitative test. TS PANEL A 0 [facility] TS PANEL B 0 [facility] Negative Control Passed [facility] Positive Control Passed [facility] Comment:For additional infor mation, please refer tohttp://education.[employer]/faq/YOV592(This link is being provided for informational/educational purposes only.)THIS TEST WAS PERFORMED AT:[employer]/DNA SEQ [id number] [place] [address]GTFYFOCJULIANA GILBERT MD,PHD 11/10/2024 4:25 PM EDT 11/10/2024 4:25 PM EDT us Rubina Rivas DO LAB BLOOD ORDERABLES Final R esult [facility] [address] [place] [phone] * Hepatitis C Antibody with Reflex to HCV, RNA, Quantitative, Real-Time PCR (10/10/2024 10:25 AM EDT) [facility] Hepatitis C Antibody Nonreactive Nonreactive [facility] Comment:Antibodies to HCV no t detected; does not exclude early acuteHCV infection. Blood Venous blood specimen / Unknown 10/10/2024 10:25 AM EDT 10/10/2024 11:13 AM EDT Rubina Rob LAB BLOOD ORDERABLES Final R esult Performing Organization Address City/[facility]/ZIP Co de Phone Number [facility] [address] [place] [phone] * HIV-1/2 Antigen and Antibodies, Fourth Generation, with Reflexes (10/10/2024 10:25 AM EDT) HIV AB/AG Nonreactive Nonreactive [facility] Comment:HIV-1 p24 Ag and/or HIV-1/HIV-2 Ab not detected.A test result that is nonreactive does not exclude thepossibility of exposure to or infection with HIV-1 and/orHIV-2. Nonreactive results in this assay for individualswith prior exposure to HIV-1 and/or HIV-2 may be due toantigen and antibody levels that are below the limit ofdetection of this assay.The Porch HIV Ag/Ab Combo assay result andsupplemental assay results should be interpreted inconjunction with the patient's clinical presentation,history and other laboratory results. If the results areinconsistent with clinical evidence, additional testing issuggested to confirm the result. Blood Venous blood specimen / Unknown 10/10/2024 10:25 AM EDT 10/10/2024 11:13 AM EDT us Rubina Rob DO LAB BLOOD ORDERABLES Final R esult Performing Organization Address [facility]/ZIP Co de Phone Number [facility] [address] [place] [phone] * (ABNORMAL) Lipid Panel, Standard (10/10/2024 10:25 AM EDT) Triglycerides 140 <150 mg/dL [facility] Comment:Desirable Triglyceri de: less than 150 mg/dLBorderline High Triglyceride 150-199 mg/dLHigh Triglyceride: 200-499 mg/dLVery High Triglyceride: greater than or equal to 5OO mg/dL Cholesterol 200(H) <200 mg/dL [facility] Comment:Desirable Cholestero l: less than 200 mg/dLBorderline High Cholesterol: 200-239 mg/dLHigh Cholesterol: greater than 239 mg/dL LDL Cholesterol Calculated 131(H) <100 mg/dL [facility] Comment:Desirable LDL: less than 100 mg/dLNear Optimal/Above Optimal LDL: 110- 129 mg/dLBorderline High LDL: 130-159 mg/dLHigh LDL: 160-189 mg/dLVery High LDL: greater than or equal to 190 mg/dL HDL Cholesterol 41 >40 mg/dL [facility] Comment:Desirable HDL: great er than 40 mg/dL Note: This HDL assay may give artificially low results in patients with liver disease. Blood Venous blood specimen / Unknown 10/10/2024 10:25 AM EDT 10/10/2024 11:13 AM EDT us Rubina Rivas DO LAB BLOOD ORDERABLES Final R esult [facility] [address] [place] [phone] from Last 3 Months or Most Recently Relevant to Health Maintenance Insurance * Guarantor: Caterina Thomas Account Type Relation to Patient Date of Phone Billing Address Personal/Family Self [address] [place] [address] [facility] * Guarantor: Caterina Thomas Account Type Relation to Patient Date of Phone Billing Address Personal/Family Self [address] [place] [address] * Guarantor: Caterina Thomas Account Type Relation to Patient Date of Phone Billing Address Personal/Family Self [address] [place] [address] Care Teams Nursing Department Chairperson Relationship Specialty Start Date End Date Rubina Rivas DO [address] [place] [phone] PCP - General Family Medicine 10/10/24
--- OUTSIDE RECORDS SUMMARY | 2025-01-22 18:24 | XMS_ITS | Clinical Summary ---
Author Organization [facility] Address [address] [place] [address] Phone Care Team Providers Care Breaker Mechanic Name Role Phone Laxmi Helms MD Primary Care Provider Unava ilable Encounters Date Type Department Care Team Description 12/26/2024 8:15 AM EST - 12/26/2024 11:59 PM EST Hospital Encounter [facility] MRI [address] [place] [id number] Other abnormal findings on diagnostic imaging of central nervous system; Other disorders of pituitary gland (CMS/[facility] V24) Discharge Disposition: Home or Self Care from Last 3 Months Surgical History Surgery Date Site/Laterality Comments OTHER [...] cancer Mother's side Aunt aunt (2019, d oing well, required radiaton only) Relation Name Status Comments Father Alive Maternal Grandmother Mother Alive Mother's side Aunt Alive Social History Tobacco Use Types Packs/Day Years Used Date Smoking Tobacco: Some Days Smokeless Tobacco: Never Alcohol Use Standard Drinks/Week Comments Yes 0 (1 standard drink = 0.6 oz pur e alcohol) Comments Unknown Sex and Gender Information Value Date Recorded Sex Assigned at Female 12/15/2024 1:06 PM EST Legal Sex Female 8:29 AM EST Gender Identity Not on file Sexual Orientation Not on file Plan of Treatment Upcoming Encounters Date Type Department Care Team (Late st Contact Info) Description 01/30/2025 9:30 AM EST Appointment [facility] at [address] [phone] Health Maintenance Due Date Last Done Comments Hepatitis A Vaccines (1 of 2 - Risk 2-dose series) 2008 Hepatitis B Vaccines (1 of 3 - 19+ 3-dose series) 2008 Pneumococcal Vaccine: Pediatrics (0 to 5 Years) and At-Risk Patients (6 to 49 Years) (1 of 2 - PCV) 2008 HPV Vaccines (1 - Risk 3-dose SCDM series) 2016 COVID-19 Vaccine (3 - Pfizer risk series) 01/28/2021 12/31/2020, 12/10/2020 Cervical Cancer Screening: Pap Smear 07/12/2021 07/12/2018 Social Influencers of Health Screening 01/08/2022 Depression Screening 02/06/2024 Influenza Vaccine (#1) 2024 12/10/2020 Cholesterol Screening (Lipid Panel) 10/10/2029 10/10/2024, 03/14/2024, 03/14/2024, Additional history exists DTaP,Tdap,and Td Vaccines (2 - Td or Tdap) 11/14/2034 11/14/2024 RSV Immunization Adult Patients (1 - 1-dose 75+ series) 2064 HIV Screening Completed 10/10/2024 Hepatitis C Screening Completed 10/10/2024, 023 MMR Vaccines Aged Out 11/14/2024 No longer eligi ble based on patient's age to complete this topic HIB Vaccines Aged Out No longer eligi [...] to complete this topic RSV Immunization Patients Under 20 months Aged Out No longer eligible based on patient's age to complete this topic Varicella Vaccines Aged Out No longer eligible based on patient's age to complete this topic Procedures Procedure Name Priority Date/Time Associated Diagnosis Comments MR BRAIN WO AND W CONTRAST Routine 12/26/2024 1:00 PM EST Other abnormal findings on diagnostic imaging of central nervous system Other disorders of pituitary gland ([facility] V24) PAP SMEAR Routine 07/12/2018 from Last 3 Months or Most Recently Relevant to Health Maintenance Results * MR Brain wo and w Contrast (12/26/2024 1:00 PM EST) Anatomical Region Laterality Modality Head and Neck Magnetic Resonan ce 12/28/2024 12:0 9 PM EST Impressions 12/28/2024 1:11 PM EST The pituitary gland is small for patient age and gender, with thin homogeneously enhancing pituitary tissue along the sellar floor. No focal pituitary lesion. -------- FINAL REPORT -------- Dictated By: Kieran Hopkins Dictated Date: 12/28/2024 12:09 ET Assigned Physician: Kieran Hopkins Reviewed and Electronically Signed By: Kieran Hopkins Signed Date: 12/28/2024 13:11 ET Workstation ID: [id number] Transcribed By: Self Edit Transcribed Date: 12/28/2024 12:21 ET Narrative 12/28/2024 1:11 PM EST PROCEDURE: Contrast-enhanced MRI of the brain and pituitary. HISTORY: Abnormal MRI. TECHNIQUE: Multiplanar multisequence MRI of the brain with and without intravenous contrast. Dedicated thin section pre and postcontrast images of the pituitary were also obtained. IV CONTRAST DOSE: 10 mL Dotarem from a 15 mL vial with 5 mL discarded. COMPARISON: No prior study available for comparison. FINDINGS: BRAIN: No diffusion abnormality. No mass or extra-axial fluid collection. No hydrocephalus. The major intracranial flow voids are preserved. Age commensurate ventricles and sulci. No abnormal enhancement. PITUITARY: The gland is small for patient age and gender, with a small amount of thin homogeneously enhancing tissue along the sellar floor. Normal position of the posterior pituitary bright spot. ORBITS: Normal. SINUSES/MASTOIDS: Trace bilateral mastoid fluid. CALVARIUM: Normal. OTHER: The visualized skull base soft tissues are normal. Procedure Note Kieran Hopkins MD - 12/28/2024 PROCEDURE: Contrast-enhanced MRI of the brain and pituitary. HISTORY: Abnormal MRI. TECHNIQUE: Multiplanar multisequence MRI of the brain with and withoutintravenous contrast. Dedicated thin section pre and postcontrast imagesof the pituitary were also obtained. IV CONTRAST DOSE: 10 mL Dotarem from a 15 mL vial with 5 mL discarded. COMPARISON: No prior study available for comparison. FINDINGS: BRAIN: No diffusion abnormality. No mass or extra-axial fluid collection.No hydrocephalus. The major intracranial flow voids are preserved. Agecommensurate ventricles and sulci. No abnormal enhancement. PITUITARY: The gland is small for patient age and gender, with a smallamount of thin homogeneously enhancing tissue along the sellar floor.Normal position of the posterior pituitary bright spot. ORBITS: Normal. SINUSES/MASTOIDS: Trace bilateral mastoid fluid. CALVARIUM: Normal. OTHER: The visualized skull base soft tissues are normal. IMPRESSION: The pituitary gland is small for patient age and gender, with thinhomogeneously enhancing pituitary tissue along the sellar floor. No focalpituitary lesion. -------- FINAL REPORT -------- Dictated By: Kieran Hopkins Dictated Date: 12/28/2024 12:09 ET Assigned Physician: Kieran Hopkins Reviewed and Electronically Signed By: Kieran Hopkins Signed Date: 12/28/2024 13:11 ET Workstation ID: [id number] Transcribed By: Self Edit Transcribed Date: 12/28/2024 12:21 ET us Rubina Rivas DO IMG MRI PROCEDURES Final R esult * Pap smear (07/12/2018) 07/12/2018 Narrative HISTORICAL TESTING LAB RESULTING AGENCY - 07/17/2018 4:10 PM EDT [id number] THINPREP PAP, IMAGED: NEGATIVE FOR SQUAMOUS INTRAEPITHELIAL LESION AND MALIGNANCY . CLUE CELLS ARE PRESENT. MARCELL HEREDIA(ASCP) (CASE ELECTRONICALLY SIGNED 07 17 2018) ADEQUACY: SATISFACTORY ENDOCERVICAL/TRANSFORMATION ZONE COMPONENT ABSENT. SOURCE: THINPREP PAP HPV IF ASCUS, CERVICAL, IMAGED CLINICAL INFORMATION: HPV IF DIAGNOSIS OF ASCUS. Z12.4, Z01.419, HORMONES, PAP HX 2017 NEG CYTOLOGY WITH + ACTINOMYCES, REACTIVE CELLULAR CHANGES, LMP 07/02/2018 Basilia Cole [facility] LAB CYTOLOGY ORDERABLES Final Result HISTORICAL TESTING LAB RESULTING AGENCY from Last 3 Months or Most Recently Relevant to Health Maintenance Insurance * Guarantor: Caterina Thomas Account Type Relation to Patient Date of Phone Billing Address Personal/Family Self [address] [place] [address] MEDICA[place] - [place] Care Teams Breaker Mechanic Relationship Specialty Start Date End Date Laxmi Helms MD PCP - General Pediatrics 03/17/16
--- OUTSIDE RECORDS SUMMARY | 2025-01-22 18:24 | XMS_ITS | Encounter Summary ---
Demographics Address [address] [place] [address] Mobile Phone Home Phone Email Address Preferred Language en Marital Status Single Church Affiliation Unknown Race Other Race Ethnic Group Unknown Author Organization [employer] Address [address] [place] [address] Care Team Providers Care Die Forger Name Role Phone Rubina Rivas DO Primary Care Provider Reason for Visit * Reason Onset Date Comments orders 12/16/2024 Encounter Details Date Type Department Care Team ([facility] st Contact Info) Description 12/16/2024 Telephone [facility] MEDICINE [address] [place], [place] [phone] Rubina Rivas DO [address] [place], [place] [phone] orders Social History Tobacco Use Types Packs/Day Years [...] encounter Miscellaneous Notes * Telephone Encounter - Tash Isbell - 12/16/2024 2:11 PM EST Tc from [facility] at [facility] MRI at [facility] requesting updated order for MRI to w/ and w/o contrast Contact eIsha at [phone] documented in this encounter Plan of Treatment Not on file documented as of this encounter Visit Diagnoses Not on filedocumented in this encounter Additional Health Concerns Assessment Noted Time PHQ-9 Depression Total Score: 10 025 10:25 AM EDT documented as of this encounter Care Teams Die Forger Relationship Specialty Start Date End Date Rubina Rivas DO [address] [place] [phone] PCP - General Family Medicine 10/10/24 documented as of this encounter
== END 2025-01-22 15:52 | disposition home or self-care (01) ==
LOC: HO.HCS 14:11
PROVIDERS: PCP Family Medicine; Visit Provider Nurse Practitioner Family
DX: R07.89 Other chest pain (principal); R00.2 Palpitations
CPT/HCPCS: 93010; 99204

== ENCOUNTER → 2025-01-22 14:10 | Outpatient (BNVA) | payer MEDICAID, SELFPAY | PROVIDERS: PCP Family Medicine; Visit Provider Nurse Practitioner Family | DX: R07.89 Other chest pain (principal); R00.2 Palpitations | CPT/HCPCS: 93005; 99212 ==